=== PATIENT | female | born 1935 | race Caucasian/White ===

== ENCOUNTER 2025-04-19 14:10 | Inpatient (IN) ==
--- NOTE | 2025-04-19 14:12 | ED Physician Documentation ---
History of Present Illness Stated complaint Stated Complaint: GLF Chief complaint Chief Complaint: Trauma Ext History obtained from History obtained from: Patient and EMS Additonal information Additional information: 89yo with DMII, noncompliant with insulin, afib on pradaxa. Fell while gardening today direct onto LEFT hip. No other injusries,, confident there was no head strike. 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 Meds/Allgy Home Medications Ambulatory Orders Medication Instructions Recorded Confirmed dabigatran etexilate 150 mg 150 mg PO QDAY 03/23/25 capsule (Pradaxa) furosemide 20 mg tablet (Lasix) 20 mg PO DAILY #30 tab s 03/23/25 metformin 500 mg tablet 500 mg PO QDAY 03/23/2503/05 Allergies Allergies Allergy/AdvReac Type Severity Reaction Status Date / Time Sulfa (Sulfonamide Allergy Intermediate Rash Verified 04/19/25 14:17 Antibiotics) PFSH Active Problems All Active Problems (Updated 04/19/25 @ 14:47 by María Heller RN) Atrial fibrillation (Chronic) DM type 2 (diabetes mellitus, type 2) (Acute) Chronic anticoagulation (Chronic) Closed intertrochanteric fracture of left femur (Acute) Confusion (Acute) Shortness of breath (Acute) Diabetes (Acute) Atrial fibrillation (Acute) Peripheral edema (Acute) Medical History Medical History (Updated 04/19/25 @ 14:47 by María Heller RN) Fall (on) (from) other stairs and steps, initial encounter Social History Social History (Updated 03/23/25 @ 22:36 by Nick Bonilla MD) Smoking Status: Smoker current status unk Living arrangement: At home Do you feel safe in your home environment?: Yes History of physical, verbal, emotional, or financial abuse?: No Exam Exam Vital Signs: Vital Signs x48h Temp Pulse Resp BP Pulse Ox 04/19/25 14:11 36.5 C 98 18 175/102 H 99 Constitutional normal general appearance winces with motion Eyes PERRL Neck/C-Spine cervical spine nontender and cervical full ROM noted Cardiovascular irregular, no murmur Gastrointestinal abdomen soft to palpation and nontender to palpation Extremities LEFT hip is externally rotated and short. Severe pain with any ROM Results Vitals Vitals: Vital Signs - 24 hr 04/19/25 14:11 04/19/25 14:16 Temperature 36.5 C Temperature Source Temporal Artery Scan Pulse Rate 98 Respiratory Rate 18 Blood Pressure 175/102 H O2 Saturation 99 O2 Source Room air Pain Intensity 10 10 Oxygen O2 Source Room air EKG (time done) 1456: EKG releavant findings:: EKG personally interpreted by author of this note. Relevant findings are: Atrial fibrillation with rate of 104. Nonspecific T wave abnormalities. No ST elevation or depression. Rads (name of study) Single view chest x-ray demonstrates mild CHF, left hip x-ray demonstrates comminuted intertrochanteric fracture: Relevant Findings:: Final report received and EMP independent interpretation of test PD Medical Decision Making ED course Complexity details: reviewed results (CBC and CMP are unremarkable except for hyperglycemia and CKD.) ED course: She has intertroch frx. Isolated injury No head inj. Spoke with[facility] ortho about 2:30pm-ok to admit to medicine. Spoke with Dr Reaves, hospitalist @2:40pm Discharge Plan Discharge Patient Disposition: 66 [facility] DC/Xfer Condition: Serious Clinical Impression: Chronic anticoagulation Closed intertrochanteric fracture of left femur Qualifiers: Encounter type: initial encounter Fracture alignment: displaced Qualified Code(s): S72.142A - Displaced intertrochanteric fracture of left femur, initial encounter for closed fracture DM type 2 (diabetes mellitus, type 2) Qualifiers: Diabetes mellitus pipe jeeper insulin use: unspecified longterm insulin use status Diabetes mellitus complication status: with hyperglycemia Qualified Code(s): E11.65 - Type 2 diabetes mellitus with hyperglycemia Atrial fibrillation Qualifiers: Atrial fibrillation type: unspecified Qualified Code(s): I48.91 - Unspecified atrial fibrillation
[2025-04-19] MEDS: HYDROmorphone 1 MG/ML CARPUJECT IVP STA ×2 (14:16→15:19)
[2025-04-19 14:49] LABS: HCT - HEMATOCRIT 40.9 % (37.0-47.0); HGB - HEMOGLOBIN 13.3 g/dL (12.0-16.0); MEAN PLATELET VOLUME 10.5 fL (7.9-10.8); NRBC ABSOLUTE COUNT (AUTO) 0.00 x10^3/uL; NUCLEATED RED BLOOD CELLS AUTO 0.0 /100WBC; PLT - PLATELET COUNT 205 10^3/uL (130-450); RED CELL DISTRIBUTION WIDTH 14.1 % (12.0-15.0)
[2025-04-19 15:01] LABS: INR 1.1 (0.8-1.2); PT - PROTHROMBIN TIME 12.9 secs (9.9-12.6)
[2025-04-19 15:04] LABS: ALT ALANINE AMINOTRANSFERASE 8.0 IU/L (10-60); AST ASPARTATE AMINOTRANSFERASE 13.0 IU/L (10-42); BUN - BLOOD UREA NITROGEN 24.0 mg/dL (6-20); CARBON DIOXIDE - CO2 28.0 mmol/L (21-32); CREATININE 0.8 mg/dL (0.6-1.3); GFR - MDRD 68.0 (>89)
--- NOTE | 2025-04-19 15:07 | HISTORY & PHYSICAL EXAMINATION ---
Chief Complaint Chief Complaint Chief Complaint: Fall with hip pain History of Present Illness History of Present Illness HPI Comment/Other: 89-year-old female with PMH type 2 diabetes that she takes metformin for but is noncompliant with her insulin. Other history A-fib on Pradaxa. She recently sold her home, and is spending a few months at a time with various members of her family. Currently staying with her grandson. She had a mechanical fall while gardening today and fell directly onto her left hip. Denies hitting her head. She reports severe left hip pain. In the ER, x-ray of the hip showed a comminuted, displaced intertrochanteric fracture of the left hip. Ortho was consulted by ER provider, who recommended admission to medicine. Hospitalist was contacted for admission Meds/Allgy Home Medications Ambulatory Orders Medication Instructions Recorded Confirmed dabigatran etexilate 150 mg 150 mg PO QDAY 03/23/25 capsule (Pradaxa) furosemide 20 mg tablet (Lasix) 20 mg PO DAILY #30 tab s 03/23/25 metformin 500 mg tablet 500 mg PO QDAY 03/23/2503/05 Allergies Allergies Allergy/AdvReac Type Severity Reaction Status Date / Time Sulfa (Sulfonamide Allergy Intermediate Rash Verified 04/19/25 14:17 Antibiotics) PFSH Active Problems All Active Problems (Updated 04/19/25 @ 14:47 by María Heller RN) Atrial fibrillation (Chronic) DM type 2 (diabetes mellitus, type 2) (Acute) Chronic anticoagulation (Chronic) Closed intertrochanteric fracture of left femur (Acute) Confusion (Acute) Shortness of breath (Acute) Diabetes (Acute) Atrial fibrillation (Acute) Peripheral edema (Acute) Medical History Medical History (Updated 04/19/25 @ 14:47 by María Heller RN) Fall (on) (from) other stairs and steps, initial encounter Social History Social History (Updated 03/23/25 @ 22:36 by Nick Bonilla MD) Smoking Status: Smoker current status unk Living arrangement: At home Do you feel safe in your home environment?: Yes History of physical, verbal, emotional, or financial abuse?: No POLST Patient has POLST: No Review of Systems ROS limited due to confusion after pain medication. Denies fever, chills, chest pain, dyspnea. Reports mechanical fall with left hip pain Exam Exam Vital Signs: Vital Signs x48h Temp Pulse Pulse Resp BP BP Pulse Ox 04/19/25 16:09 36.8 C 100 20 141/86 H 96 04/19/25 15:39 98 18 143/89 H 97 04/19/25 14:11 36.5 C 98 18 175/102 H 99 Constitutional Disheveled elderly female. Anxious HENMT normocephalic, head/scalp atraumatic and oral mucous membranes abnormal (dry) Eyes PERRL Respiratory breath sounds equal bilaterally and normal respiratory effort Cardiovascular normal heart rate noted, rhythm abnormal (irregular) and edema noted Gastrointestinal abdomen normal to inspection and abdomen soft to palpation Extremities Pitting edema in both legs Neurology GCS 15 Psychiatry Oriented overall. Anxious. Tangential conversation, requiring frequent coaching to answer questions Skin BLE redness from venous insufficiency Conclusion/Plan Problem List (1) Closed intertrochanteric fracture of left femur: Plan: Mechanical fall with left femur fracture noted on x-ray Ortho consulted by ER provider Tylenol 1 g p.o. 3 times daily scheduled As needed oxycodone 5 mg p.o. As needed morphine 2 mg IV push Anticipate PT consult in the postoperative period and likely SNF placement Qualifiers: Encounter type: initial encounter Fracture alignment: displaced Q ualified Code(s): S72.142A - Displaced intertrochanteric fracture of left femur, initial encounter for closed fracture (2) Atrial fibrillation: Plan: Preliminary med rec does not show any rate control drugs She is on Pradaxa at home, holding that at this time as she will be in the OR Rate currently controlled without medication Qualifiers: Atrial fibrillation type: unspecified Qualified Code(s): I48.91 - Unspecified atrial fibrillation (3) DM type 2 (diabetes mellitus, type 2): Plan: She reports that she takes metformin for this, but is noncompliant with insulin Check A1c SSI Qualifiers: Diabetes mellitus complication status: with hyperglycemia Diabetes mellitus intermediate insulin use: unspecified intermediate insulin use status Q ualified Code(s): E11.65 - Type 2 diabetes mellitus with hyperglycemia (4) Peripheral edema: Plan: Reports leg swelling for the past few months. Was started on Lasix. No known history of heart failure Check echo No respiratory symptoms, no concern for acute exacerbation Plan Admit inpatient med floor DNR/DNI Her daughter is her surrogate decision maker/DPOA Lab Results Lab results reviewed: Yes 04/19/25 14:39 04/19/25 14:39 Diagnostic Imaging Results Diagnostic Imaging Results: positive Final report reviewed and Read independently Core Measures Anticipated LOS I expect patient to be DC'd or transferred within 96 hours.: Yes DVT/VTE - Prophylaxis VTE/DVT Prophylaxis med ordered at admit?: Yes
--- NOTE | 2025-04-19 15:10 | XRAY Report ---
PROCEDURE: XR Chest 1V INDICATIONS: preop TECHNIQUE: One view of the chest was acquired. COMPARISON: 03/23/2025 FINDINGS: Surgical changes and devices: None. Lungs and pleura: Question subtle interstitial pulmonary edema Mediastinum: Cardiomegaly. Bones and chest wall: No suspicious bony lesions. Overlying soft tissues appear unremarkable. IMPRESSION: Question mild congestive heart failure. Reviewed by: Ollie Do sSantos MD on 04/19/2025 3:07 PM PDT Approved by: Ollie Dos Santos MD on 04/19/2025 3:07 PM PDT Station ID: [id number]
--- NOTE | 2025-04-19 15:12 | XRAY Report ---
PROCEDURE: XR Hip w/Pelvis 2-3V LT INDICATIONS: hip inj TECHNIQUE: An AP view of the pelvis and AP and crosstable lateral views of the hip were acquired. COMPARISON: None. FINDINGS: Bones: Comminuted displaced intertrochanteric fracture of the left hip. No dislocation. Soft tissues: No suspicious soft tissue calcifications or masses. IMPRESSION: Comminuted, displaced intertrochanteric fracture of the left hip. Reviewed by: Ollie Dos Santos MD on 04/19/2025 3:09 PM PDT Approved by: Ollie Dos Santos MD on 04/19/2025 3:09 PM PDT Station ID: [id number]
[2025-04-19] MEDS ORDERED: ONDANSETRON 4 MG/2 ML VIAL IVP PRN (15:49)
[2025-04-19] MEDS ORDERED: SODIUM CHLORIDE FLUSH 0.9% 10 ML SYRINGE IVP PRN (15:49)
[2025-04-19] MEDS: HYDROmorphone 0.5 MG/0.5 ML SYRINGE IVP PRN (16:02)
[2025-04-19] MEDS: LACTATED RINGERS 1,000 ML IV SCH (16:04)
[2025-04-19] MEDS: ACETAMINOPHEN 500 MG TABLET PO SCH (17:46)
[2025-04-19] MEDS: SODIUM CHLORIDE FLUSH 0.9% 10 ML SYRINGE IVP SCH (18:47)
[2025-04-19] MEDS: INSULIN LISPRO 300 UNIT/3 ML PEN SUBQ SCH (18:47)
[2025-04-19] MEDS: NYSTATIN POWDER 15 GM TOP SCH (21:31)
[2025-04-20 05:14] LABS: HCT - HEMATOCRIT 35.3 % (37.0-47.0); HGB - HEMOGLOBIN 11.6 g/dL (12.0-16.0); MEAN PLATELET VOLUME 10.6 fL (7.9-10.8); NRBC ABSOLUTE COUNT (AUTO) 0.00 x10^3/uL; NUCLEATED RED BLOOD CELLS AUTO 0.0 /100WBC; PLT - PLATELET COUNT 172 10^3/uL (130-450); RED CELL DISTRIBUTION WIDTH 14.3 % (12.0-15.0)
[2025-04-20 05:27] LABS: BUN - BLOOD UREA NITROGEN 19.0 mg/dL (6-20); CARBON DIOXIDE - CO2 25.0 mmol/L (21-32); CREATININE 0.7 mg/dL (0.6-1.3); GFR - MDRD 79.0 (>89)
[2025-04-20] MEDS: FUROSEMIDE 20 MG TABLET PO SCH (08:08)
[2025-04-20 08:25] LABS: ESTIMATED AVERAGE GLUCOSE 180 mg/dL (70-100); HEMOGLOBIN A1c% 7.9 % (4.27-6.07)
--- NOTE | 2025-04-20 11:56 | PHARMACY PROGRESS NOTE ---
Best Possible Medication History Admit Date and Time: 04/19/25 1439 Home Medications Medication Instructions Recorded Confirmed Type dabigatran etexilate 110 mg 110 mg PO BID 04/19/25 History capsule (Pradaxa) insulin NPH isoph U-100 human 100 30 unit subcut DAILY 04/19/25 04/20/25 History unit/mL subcutaneous suspension (Novolin N NPH U-100 Insulin isophane) metformin 500 mg tablet,extended 1,000 mg PO DAILY 04/20/25 History release 24 hr sertraline 50 mg tablet 50 mg PO DAILY 04/19/2504/04 History atorvastatin 20 mg tablet 20 mg PO DAILY 04/20/2504/04 History levothyroxine 50 mcg tablet 50 mcg PO QAM 04/20/25 History tramadol 50 mg tablet 50 mg PO Q6H 04/20/25 History Processed by: Pharmacy Medications reviewed in ED?: Yes Medication History completed: Yes Patient Interview: Completed Secondary Source(s): Other family member and Insurance records [facility] Statement: PT STATES THAT SHE ONLY TAKES PRADAXA AND METFORMIN WHILE DAUGHTER WHO IS DPOA STATES SHE TAKES THE FULL MED LIST. As the person ultimately responsible for medication therapy, providers are able to order a medication from an existing home medication list in [facility] via the "Reconcile Routine" prior to Confirmation of that medication by dealer support technician. Such practice is discouraged except when the physician, in their clinical judgment, deems that a medical need exists for a medication without regard to previous use.
[2025-04-20] MEDS: oxyCODONE 5 MG TABLET PO PRN (12:26)
--- NOTE | 2025-04-20 13:05 | PROVIDER PROGRESS NOTE ---
Subjective Prog Note Date Prog Note Date: 04/20/25 Subjective Subjective: She is feeling OK. She says that pain is mostly controlled, occasionally has bursts of it, then meds control it, but she feels like she is losing touch with reality on the meds. She is unable to sit up in bed due to pain. She is concerned about delirium. She had an experience right as Covid lockdowns were starting when she went to SNF. She says the care was terrible, and she was forced to urinate in her bed instead of getting up to the bathroom, although she was independent. She does not want to go to a SNF for rehab bc of this experience. [place], and a grandson at the bedside right now. Her POA and primary residence is in [place], although her plan is to bounce between her children's homes. Current Medications Current Medications Current Medications: Current Medications Generic Name Dose Route Start Last Admin Trade Name Freq PRN Reason Stop Dose Admin Acetaminophen 1,000 mg 04/19/25 15:49 04/20/25 06:51 Acetaminophen 500 Mg Tablet PO 1,000 mg TID BEN Administration Enoxaparin Sodium 40 mg 04/20/25 21:00 Enoxaparin 40 Mg/0.4 Ml Syringe SUBQ DAILY BEN Furosemide 20 mg 04/20/25 09:00 04/20/25 08:08 Furosemide 20 Mg Tablet PO 20 mg DAILY BEN Administration Hydromorphone HCl 0.5 mg 04/19/25 15:49 04/20/25 11:29 Hydromorphone 0.5 Mg/0.5 Ml Syringe IVP 0.5 mg Q2H PRN Administration Pain 8 to 10 Lactated Ringer's 1,000 mls @ 100 mls/hr 04/19/25 15:49 04/20/25 02:33 Lr IV 100 mls/hr .Q10H BEN Administration Insulin Human Lispro 1 - 5 unit 04/19/25 17:00 04/20/25 11:27 Insulin Lispro 300 Unit/3 Ml Pen SUBQ 1 unit 0800,1200,1700,2100 BEN Administration Protocol Nystatin 1 applic 04/19/25 21:00 04/20/25 08:08 Nystatin Powder 15 Gm TOP 1 applic BID BEN Administration Ondansetron HCl 4 mg 04/19/25 15:49 Ondansetron Odt 4 Mg Tablet TL Q6HR PRN Nausea / Vomiting Ondansetron HCl 4 mg 04/19/25 15:49 Ondansetron 4 Mg/2 Ml Vial IVP Q6HR PRN Nausea / Vomiting Oxycodone HCl 5 mg 04/19/25 15:49 04/20/25 12:26 Oxycodone 5 Mg Tablet PO 5 mg Q4HR PRN Administration Pain 5 to 7 Sodium Chloride 10 ml 04/19/25 15:49 Sodium Chloride Flush 0.9% 10 Ml Syringe IVP PRN PRN NEEDED PER PROVIDER ORDERS Sodium Chloride 10 ml 04/19/25 17:00 04/20/25 08:08 Sodium Chloride Flush 0.9% 10 Ml Syringe IVP 10 ml 0100,0900,1700 BEN Administration Objective Vital Signs/Intake & Output Reviewed Vital Signs: Yes Vital Signs: Vital Signs x48h Temp Pulse Resp BP Pulse Ox 04/20/25 07:49 36.7 C 110 H 18 124/80 94 Intake & Output: Intake & Output 04/17/25 04/18/25 04/19/25 04/20/25 23:59 23:59 23:59 23:59 Intake Total 200 / 200 1000 / 1000 Output Total 600 / 600 300 / 300 Balance -400 / -400 700 / 700 Weight (kg) 91.5 kg Objective General Appearance: positive No acute distress and Alert Eyes Bilateral: positive Normal inspection ENT: positive ENT inspection nml Respiratory: positive No respiratory distress and Breath sounds nml Cardiovascular: positive Regular rate & rhythm Abdomen: positive Non-tender and No distention Skin: positive Color nml Extremities: positive Pedal edema (trace) Neurologic/Psychiatric: positive Oriented x3 Lab Results 04/20/25 04:59 04/20/25 04:59 Other Labs: Lab Results x24hrs 04/20/25 04/20/25 04/20/25 Range/Units 11:17 07:25 04:59 WBC 5.0 (4.8-10.8) x10^3/uL RBC 4.19 L (4.20-5.40) 10^6/uL Hgb 11.6 L (12.0-16.0) g/dL Hct 35.3 L (37.0-47.0) % MCV 84.2 (81.0-99.0) fL MCH 27.7 (27.0-31.0) pg MCHC 32.9 (32.0-36.0) g/dL RDW 14.3 (12.0-15.0) % Plt Count 172 (130-450) 10^3/uL MPV 10.6 (7.9-10.8) fL Neut # (Auto) 3.4 (1.5-6.6) 10^3/uL Lymph # (Auto) 0.9 L (1.5-3.5) 10^3/uL [place] # (Auto) 0.7 (0.0-1.0) 10^3/uL Eos # (Auto) 0.0 (0.0-0.7) 10^3/uL Baso # (Auto) 0.0 (0.0-0.1) 10^3/uL Absolute Nucleated RBC 0.00 x10^3/uL Nucleated RBC % 0.0 /100WBC PT (9.9-12.6) secs INR (0.8-1.2) Sodium 136 (135-145) mmol/L Potassium 3.9 (3.5-4.5) mmol/L Chloride 106 (101-111) mmol/L Carbon Dioxide 25 (21-32) mmol/L Anion Gap 5.0 L (6-13) BUN 19 (6-20) mg/dL Creatinine 0.7 (0.6-1.3) mg/dL Estimated GFR (MDRD) 79 L (>89) Glucose 163 H (74-104) mg/dL POC Whole Bld Glucose 149 162 (70-100) mg/dL Estimat Average Glucose 180 H (70-100) mg/dL Hemoglobin A1c % 7.9 H (4.27-6.07) % Calcium 8.6 (8.5-10.3) mg/dL Total Bilirubin (0.2-1.0) mg/dL AST (10-42) IU/L ALT (10-60) IU/L Alkaline Phosphatase (42-121) IU/L Total Protein (6.4-8.9) g/dL Albumin (3.2-5.5) g/dL Globulin (2.1-4.2) g/dL Albumin/Globulin Ratio (1.0-2.2) 04/19/25 04/19/25 04/19/25 Range/Units 20:40 16:45 14:39 WBC 6.8 (4.8-10.8) x10^3/uL RBC 4.81 (4.20-5.40) 10^6/uL Hgb 13.3 (12.0-16.0) g/dL Hct 40.9 (37.0-47.0) % MCV 85.0 (81.0-99.0) fL MCH 27.7 (27.0-31.0) pg MCHC 32.5 (32.0-36.0) g/dL RDW 14.1 (12.0-15.0) % Plt Count 205 (130-450) 10^3/uL MPV 10.5 (7.9-10.8) fL Neut # (Auto) 5.4 (1.5-6.6) 10^3/uL Lymph # (Auto) 0.7 L (1.5-3.5) 10^3/uL [place] # (Auto) 0.7 (0.0-1.0) 10^3/uL Eos # (Auto) 0.0 (0.0-0.7) 10^3/uL Baso # (Auto) 0.0 (0.0-0.1) 10^3/uL Absolute Nucleated RBC 0.00 x10^3/uL Nucleated RBC % 0.0 /100WBC PT 12.9 H (9.9-12.6) secs INR 1.1 (0.8-1.2) Sodium 138 (135-145) mmol/L Potassium 5.0 H (3.5-4.5) mmol/L Chloride 104 (101-111) mmol/L Carbon Dioxide 28 (21-32) mmol/L Anion Gap 6.0 (6-13) BUN 24 H (6-20) mg/dL Creatinine 0.8 (0.6-1.3) mg/dL Estimated GFR (MDRD) 68 L (>89) Glucose 185 H (74-104) mg/dL POC Whole Bld Glucose 184 139 (70-100) mg/dL Estimat Average Glucose (70-100) mg/dL Hemoglobin A1c % (4.27-6.07) % Calcium 9.8 (8.5-10.3) mg/dL Total Bilirubin 0.9 (0.2-1.0) mg/dL AST 13 (10-42) IU/L ALT 8 L (10-60) IU/L Alkaline Phosphatase 54 (42-121) IU/L Total Protein 6.9 (6.4-8.9) g/dL Albumin 4.4 (3.2-5.5) g/dL Globulin 2.5 (2.1-4.2) g/dL Albumin/Globulin Ratio 1.8 (1.0-2.2) Assessment/Plan Problem List (1) Closed intertrochanteric fracture of left femur: Impression: Discussed today with Dr Herrera, orthopedics. The plan is to allow her to metabolize the Pradaxa, and go to the OR on 04/22. Multimodal pain control. Scheduled APAP. I am holding NSAIDS at this time due to bleeding at time of OR. Would consider gabapentin if needs better pain control, but concerned that will affect her mental status. PT will work with her today in bed. I will add Calcium and Vit D post op for fracture healing. possible SNF placement post operatively. Patient is not in agreement with this. I will see how she is doing post op and work with her. I mentioned the possibility of family evaluating SNF before placement, to ease patient fears. Qualifiers: Encounter type: initial encounter Fracture alignment: displaced Q ualified Code(s): S72.142A - Displaced intertrochanteric fracture of left femur, initial encounter for closed fracture (2) Atrial fibrillation: Impression: Preliminary med rec does not show any rate control drugs She is on Pradaxa at home, holding that at this time as she will be in the OR Rate currently controlled without medication- I have restarted home meds. Qualifiers: Atrial fibrillation type: unspecified Qualified Code(s): I48.91 - Unspecified atrial fibrillation (3) DM type 2 (diabetes mellitus, type 2): Impression: A1C is 7.9%. She has taken insulin only about 3 times over the summer. She is careful with her diet. She is complaint with metformin. She is on SSI right now. I will keep her blood sugars less than 180 while hospitalized. I will discharge her to resume metformin, and recomend lower carb diet, and peggy A1C in 3 month. I will not continue insulin on dc. Qualifiers: Diabetes mellitus complication status: with hyperglycemia Diabetes mellitus exterminator insulin use: unspecified exterminator insulin use status Q ualified Code(s): E11.65 - Type 2 diabetes mellitus with hyperglycemia (4) Peripheral edema: Impression: Echo pending. started on lasix for symptoms of leg swelling several months ago. data technical lead not available until 04/21. This patient's diagnosis and treatment plan was discussed this AM with attending physician as a part of multi disciplinary rounding meeting. I have spent 51 minutes in the care of this patient today. This includes time [id number], review and ordering of diagnostic imaging and laboratory studies and consultation with other providers.
[2025-04-20] MEDS: LEVOTHYROXINE 25 MCG TABLET PO SCH (14:16)
[2025-04-20] MEDS: ENOXAPARIN 40 MG/0.4 ML SYRINGE SUBQ SCH (21:21)
[2025-04-21 05:34] LABS: HCT - HEMATOCRIT 38.7 % (37.0-47.0); HGB - HEMOGLOBIN 12.4 g/dL (12.0-16.0); MEAN PLATELET VOLUME 10.4 fL (7.9-10.8); NRBC ABSOLUTE COUNT (AUTO) 0.00 x10^3/uL; NUCLEATED RED BLOOD CELLS AUTO 0.0 /100WBC; PLT - PLATELET COUNT 160 10^3/uL (130-450); RED CELL DISTRIBUTION WIDTH 14.1 % (12.0-15.0)
[2025-04-21 05:50] LABS: BUN - BLOOD UREA NITROGEN 14.0 mg/dL (6-20); CARBON DIOXIDE - CO2 25.0 mmol/L (21-32); CREATININE 0.7 mg/dL (0.6-1.3); GFR - MDRD 79.0 (>89)
[2025-04-21] MEDS: SERTRALINE 50 MG TABLET PO SCH (08:51)
--- NOTE | 2025-04-21 11:55 | PROVIDER PROGRESS NOTE ---
Subjective Prog Note Date Prog Note Date: 04/21/25 Subjective Subjective: She is doing well. Pain controlled. she has not been out of bed. Waiting for OR tomorrow. She has had some delirium at times, but she is able to reorient herself. Current Medications Current Medications Current Medications: Current Medications Generic Name Dose Route Start Last Admin Trade Name Freq PRN Reason Stop Dose Admin Acetaminophen 1,000 mg 04/19/25 15:49 04/21/25 05:44 Acetaminophen 500 Mg Tablet PO 1,000 mg TID BEN Administration Enoxaparin Sodium 40 mg 04/20/25 21:00 04/21/25 08:53 Enoxaparin 40 Mg/0.4 Ml Syringe SUBQ Not Given DAILY BEN Furosemide 20 mg 04/20/25 09:00 04/21/25 08:51 Furosemide 20 Mg Tablet PO 20 mg DAILY BEN Administration Hydromorphone HCl 0.5 mg 04/19/25 15:49 04/21/25 08:52 Hydromorphone 0.5 Mg/0.5 Ml Syringe IVP 0.5 mg Q2H PRN Administration Pain 8 to 10 Lactated Ringer's 1,000 mls @ 100 mls/hr 04/19/25 15:49 04/21/25 09:48 Lr IV 100 mls/hr .Q10H BEN Administration Insulin Human Lispro 1 - 5 unit 04/19/25 17:00 04/21/25 08:51 Insulin Lispro 300 Unit/3 Ml Pen SUBQ 1 unit 0800,1200,1700,2100 BEN Administration Protocol Levothyroxine Sodium 50 mcg 04/20/25 15:00 04/21/25 06:54 Levothyroxine 25 Mcg Tablet PO 50 mcg 0700 BEN Administration Nystatin 1 applic 04/19/25 21:00 04/21/25 08:52 Nystatin Powder 15 Gm TOP 1 applic BID BEN Administration Ondansetron HCl 4 mg 04/19/25 15:49 Ondansetron Odt 4 Mg Tablet TL Q6HR PRN Nausea / Vomiting Ondansetron HCl 4 mg 04/19/25 15:49 Ondansetron 4 Mg/2 Ml Vial IVP Q6HR PRN Nausea / Vomiting Oxycodone HCl 5 mg 04/19/25 15:49 04/21/25 05:45 Oxycodone 5 Mg Tablet PO 5 mg Q4HR PRN Administration Pain 5 to 7 Sertraline HCl 50 mg 04/21/25 09:00 04/21/25 08:51 Sertraline 50 Mg Tablet PO 50 mg DAILY BEN Administration Sodium Chloride 10 ml 04/19/25 15:49 Sodium Chloride Flush 0.9% 10 Ml Syringe IVP PRN PRN NEEDED PER PROVIDER ORDERS Sodium Chloride 10 ml 04/19/25 17:00 04/21/25 08:52 Sodium Chloride Flush 0.9% 10 Ml Syringe IVP 10 ml 0100,0900,1700 BEN Administration Objective Vital Signs/Intake & Output Reviewed Vital Signs: Yes Vital Signs: Vital Signs x48h Temp Pulse Resp BP Pulse Ox 04/21/25 08:30 36.5 C 107 H 20 139/79 H 94 Intake & Output: Intake & Output 04/18/25 04/19/25 04/20/25 04/21/25 23:59 23:59 23:59 23:59 Intake Total 200 / 200 3605 / 3605 1110 / 1110 Output Total 600 / 600 1750 / 1750 450 / 450 Balance -400 / -400 1855 / 1855 660 / 660 Weight (kg) 91.5 kg Objective General Appearance: positive No acute distress and Alert Eyes Bilateral: positive Normal inspection ENT: positive ENT inspection nml Neck: positive Nml inspection Respiratory: positive No respiratory distress and Breath sounds nml Cardiovascular: positive Regular rate & rhythm Abdomen: positive Non-tender and No distention Skin: positive Color nml and Other (mild venous stasis skin changes BLE) Extremities: positive Non-tender and No pedal edema Neurologic/Psychiatric: positive Oriented x3 Lab Results 04/21/25 05:25 04/21/25 05:25 Other Labs: Lab Results x24hrs 04/21/25 04/21/25 04/21/25 Range/Units 11:37 07:40 05:25 WBC 6.0 (4.8-10.8) x10^3/uL RBC 4.52 (4.20-5.40) 10^6/uL Hgb 12.4 (12.0-16.0) g/dL Hct 38.7 (37.0-47.0) % MCV 85.6 (81.0-99.0) fL MCH 27.4 (27.0-31.0) pg MCHC 32.0 (32.0-36.0) g/dL RDW 14.1 (12.0-15.0) % Plt Count 160 (130-450) 10^3/uL MPV 10.4 (7.9-10.8) fL Neut # (Auto) 4.2 (1.5-6.6) 10^3/uL Lymph # (Auto) 0.9 L (1.5-3.5) 10^3/uL [place] # (Auto) 0.8 (0.0-1.0) 10^3/uL Eos # (Auto) 0.1 (0.0-0.7) 10^3/uL Baso # (Auto) 0.0 (0.0-0.1) 10^3/uL Absolute Nucleated RBC 0.00 x10^3/uL Nucleated RBC % 0.0 /100WBC Sodium 134 L (135-145) mmol/L Potassium 3.7 (3.5-4.5) mmol/L Chloride 103 (101-111) mmol/L Carbon Dioxide 25 (21-32) mmol/L Anion Gap 6.0 (6-13) BUN 14 (6-20) mg/dL Creatinine 0.7 (0.6-1.3) mg/dL Estimated GFR (MDRD) 79 L (>89) Glucose 176 H (74-104) mg/dL POC Whole Bld Glucose 202 153 (70-100) mg/dL Calcium 8.1 L (8.5-10.3) mg/dL 04/20/25 04/20/25 Range/Units 20:50 16:35 WBC (4.8-10.8) x10^3/uL RBC (4.20-5.40) 10^6/uL Hgb (12.0-16.0) g/dL Hct (37.0-47.0) % MCV (81.0-99.0) fL MCH (27.0-31.0) pg MCHC (32.0-36.0) g/dL RDW (12.0-15.0) % Plt Count (130-450) 10^3/uL MPV (7.9-10.8) fL Neut # (Auto) (1.5-6.6) 10^3/uL Lymph # (Auto) (1.5-3.5) 10^3/uL [place] # (Auto) (0.0-1.0) 10^3/uL Eos # (Auto) (0.0-0.7) 10^3/uL Baso # (Auto) (0.0-0.1) 10^3/uL Absolute Nucleated RBC x10^3/uL Nucleated RBC % /100WBC Sodium (135-145) mmol/L Potassium (3.5-4.5) mmol/L Chloride (101-111) mmol/L Carbon Dioxide (21-32) mmol/L Anion Gap (6-13) BUN (6-20) mg/dL Creatinine (0.6-1.3) mg/dL Estimated GFR (MDRD) (>89) Glucose (74-104) mg/dL POC Whole Bld Glucose 175 179 (70-100) mg/dL Calcium (8.5-10.3) mg/dL Assessment/Plan Problem List (1) Closed intertrochanteric fracture of left femur: Impression: The plan is to allow her to metabolize the Pradaxa, and go to the OR on 04/22. Multimodal pain control. Scheduled APAP. I am holding NSAIDS at this time due to bleeding at time of OR. Would consider gabapentin if needs better pain control, but concerned that will affect her mental status. She does not seem to need it. PT eval pending- patient is firm in her desire not to go to SNF post op. I will add Calcium and Vit D post op for fracture healing. Qualifiers: Encounter type: initial encounter Fracture alignment: displaced Q ualified Code(s): S72.142A - Displaced intertrochanteric fracture of left femur, initial encounter for closed fracture (2) Atrial fibrillation: Impression: Preliminary med rec does not show any rate control drugs She is on Pradaxa at home, holding that at this time as she will be in the OR Rate currently controlled without medication- I have restarted home meds. Selected Entries 04/20/25 00:06 04/20/25 07:49 04/20/25 15:34 Pulse Rate [Brachial] 105 H 110 H 94 04/20/25 23:25 04/21/25 08:30 Pulse Rate [Brachial] 103 H 107 H Qualifiers: Atrial fibrillation type: unspecified Qualified Code(s): I48.91 - Unspecified atrial fibrillation (3) DM type 2 (diabetes mellitus, type 2): Impression: A1C is 7.9%. She has taken insulin only about 3 times over the summer. She is careful with her diet. She is complaint with metformin. She is on SSI right now. I will keep her blood sugars less than 180 while hospitalized. I will discharge her to resume metformin, and recomend lower carb diet, and peggy A1C in 3 month. I will not continue insulin on dc. With holding her metformin, she has been >180 at times. I am treating with SSI, low dose. Laboratory Tests 04/20/25 04/20/25 04/20/25 11:17 16:35 20:50 POC Whole Bld Glucose 149 179 175 04/21/25 04/21/25 07:40 11:37 POC Whole Bld Glucose 153 202 Qualifiers: Diabetes mellitus complication status: with hyperglycemia Diabetes mellitus shelter insulin use: unspecified buttermaker helper insulin use status Q ualified Code(s): E11.65 - Type 2 diabetes mellitus with hyperglycemia (4) Peripheral edema: Impression: Echo pending. started on lasix for symptoms of leg swelling several months ago. Echo is being done right now. This patient's diagnosis and treatment plan was discussed this AM with attending physician as a part of multi disciplinary rounding meeting. I have spent 38 minutes in the care of this patient today. This includes time [id number], review and ordering of diagnostic imaging and laboratory studies.
[2025-04-21] MEDS: ONDANSETRON ODT 4 MG TABLET TL PRN (12:52)
--- NOTE | 2025-04-21 14:15 | HISTORY & PHYSICAL EXAMINATION ---
Chief Complaint Chief Complaint Chief Complaint: Left hip pain History of Present Illness History of Present Illness HPI Comment/Other: The patient was admitted to the hospital on Friday afternoon evening after a fall onto the left hip. She was diagnosed with a displaced intertrochanteric hip fracture and she was admitted to medicine. Due to her medical status and being on blood thinners we were unable to go right to surgery so we held the blood thinners and we are now going to clear the patient for surgery for Friday. The patient has no other complaints other than left leg swelling. Colonoscopy Questionnaire In the last 30 days have you experienced these symptoms? PFSH Active Problems All Active Problems (Updated 04/19/25 @ 14:47 by María Heller RN) Atrial fibrillation (Chronic) DM type 2 (diabetes mellitus, type 2) (Acute) Chronic anticoagulation (Chronic) Closed intertrochanteric fracture of left femur (Acute) Confusion (Acute) Shortness of breath (Acute) Diabetes (Acute) Atrial fibrillation (Acute) Peripheral edema (Acute) Medical History Medical History (Updated 04/19/25 @ 14:47 by María Heller RN) Fall (on) (from) other stairs and steps, initial encounter Social History Social History (Updated 03/23/25 @ 22:36 by Nick Bonilla MD) Smoking Status: Smoker current status unk Second hand tobacco smoke exposure: No Do you dip or chew tobacco?: No Do you vape?: No Living arrangement: At home Level: Independent Home Mobility Equipment: Cane and Wheeled walker Do you feel safe in your home environment?: Yes History of physical, verbal, emotional, or financial abuse?: No POLST Patient has POLST: No Meds/Allgy Home Medications Ambulatory Orders Medication Instructions Recorded Confirmed dabigatran etexilate 110 mg 110 mg PO BID 04/19/25 capsule (Pradaxa) insulin NPH isoph U-100 human 100 30 unit subcut DAILY 04/19/25 04/20/25 unit/mL subcutaneous suspension (Novolin N NPH U-100 Insulin isophane) metformin 500 mg tablet,extended 1,000 mg PO DAILY 04/20/25 release 24 hr sertraline 50 mg tablet 50 mg PO DAILY 04/19/2504/04 atorvastatin 20 mg tablet 20 mg PO DAILY 04/20/2504/04 levothyroxine 50 mcg tablet 50 mcg PO QAM 04/20/25 tramadol 50 mg tablet 50 mg PO Q6H 04/20/25 Allergies Allergies Allergy/AdvReac Type Severity Reaction Status Date / Time Sulfa (Sulfonamide Allergy Intermediate Rash Verified 04/19/25 14:17 Antibiotics) Results Lab Results 04/21/25 05:25 04/21/25 05:25 Other Lab Results: Lab Results x24hrs 04/21/25 04/21/25 04/21/25 Range/Units 11:37 07:40 05:25 WBC 6.0 (4.8-10.8) x10^3/uL RBC 4.52 (4.20-5.40) 10^6/uL Hgb 12.4 (12.0-16.0) g/dL Hct 38.7 (37.0-47.0) % MCV 85.6 (81.0-99.0) fL MCH 27.4 (27.0-31.0) pg MCHC 32.0 (32.0-36.0) g/dL RDW 14.1 (12.0-15.0) % Plt Count 160 (130-450) 10^3/uL MPV 10.4 (7.9-10.8) fL Neut # (Auto) 4.2 (1.5-6.6) 10^3/uL Lymph # (Auto) 0.9 L (1.5-3.5) 10^3/uL [place] # (Auto) 0.8 (0.0-1.0) 10^3/uL Eos # (Auto) 0.1 (0.0-0.7) 10^3/uL Baso # (Auto) 0.0 (0.0-0.1) 10^3/uL Absolute Nucleated RBC 0.00 x10^3/uL Nucleated RBC % 0.0 /100WBC Sodium 134 L (135-145) mmol/L Potassium 3.7 (3.5-4.5) mmol/L Chloride 103 (101-111) mmol/L Carbon Dioxide 25 (21-32) mmol/L Anion Gap 6.0 (6-13) BUN 14 (6-20) mg/dL Creatinine 0.7 (0.6-1.3) mg/dL Estimated GFR (MDRD) 79 L (>89) Glucose 176 H (74-104) mg/dL POC Whole Bld Glucose 202 153 (70-100) mg/dL Calcium 8.1 L (8.5-10.3) mg/dL 04/20/25 04/20/25 Range/Units 20:50 16:35 WBC (4.8-10.8) x10^3/uL RBC (4.20-5.40) 10^6/uL Hgb (12.0-16.0) g/dL Hct (37.0-47.0) % MCV (81.0-99.0) fL MCH (27.0-31.0) pg MCHC (32.0-36.0) g/dL RDW (12.0-15.0) % Plt Count (130-450) 10^3/uL MPV (7.9-10.8) fL Neut # (Auto) (1.5-6.6) 10^3/uL Lymph # (Auto) (1.5-3.5) 10^3/uL [place] # (Auto) (0.0-1.0) 10^3/uL Eos # (Auto) (0.0-0.7) 10^3/uL Baso # (Auto) (0.0-0.1) 10^3/uL Absolute Nucleated RBC x10^3/uL Nucleated RBC % /100WBC Sodium (135-145) mmol/L Potassium (3.5-4.5) mmol/L Chloride (101-111) mmol/L Carbon Dioxide (21-32) mmol/L Anion Gap (6-13) BUN (6-20) mg/dL Creatinine (0.6-1.3) mg/dL Estimated GFR (MDRD) (>89) Glucose (74-104) mg/dL POC Whole Bld Glucose 175 179 (70-100) mg/dL Calcium (8.5-10.3) mg/dL Exam Exam Vital Signs: Vital Signs x48h Temp Pulse Resp BP Pulse Ox 04/21/25 08:30 36.5 C 107 H 20 139/79 H 94 Physical exam reveals the left leg to be shortened and externally rotated. She has significant edema throughout the lower extremity significant tenderness to palpation of the left hip and she is unable to straight leg raise. Impression/Plan Problem List (1) Closed intertrochanteric fracture of left femur: Plan: The patient has a closed intertrochanteric fracture of the left hip and she will be cleared for surgery in the morning and we have her tentatively scheduled for 8 AM for intramedullary kirit placement.The patient is with one of her daughters and they both understand the risks and benefits of the procedure and a consent was signed. Qualifiers: Encounter type: initial encounter Fracture alignment: displaced Q ualified Code(s): S72.142A - Displaced intertrochanteric fracture of left femur, initial encounter for closed fracture (2) Atrial fibrillation: Qualifiers: Atrial fibrillation type: unspecified Qualified Code(s): I48.91 - Unspecified atrial fibrillation (3) DM type 2 (diabetes mellitus, type 2): Qualifiers: Diabetes mellitus complication status: with hyperglycemia Diabetes mellitus extermination supervisor insulin use: unspecified extermination supervisor insulin use status Q ualified Code(s): E11.65 - Type 2 diabetes mellitus with hyperglycemia (4) Peripheral edema:
--- NOTE | 2025-04-21 15:53 | ECHO Report ---
Version: 1 Study ID: [id number] [id number] Adult Echocardiogram Report Name: ROSA TAYLOR Study Date: 04/21/2025, 11: 43 AM BP: 139 / 79 mmHg Patient Location[place] [facility] [place] HR: 90 bpm : 1935 (MM/DD/YYYY) Gender: Female Height: 64 in Age: 89 Years Weight: 201.723 lb BSA: 1.96 m² Reason For Study: HF eval History: HF eval - closed intertrochanteric fracture of left femur Interpretation Summary There is mild concentric increase in the wall thickness of the left ventricle. Global left ventricular systolic function is normal. The visual left ventricular ejection fraction is estimated at 55 to 60%. The right ventricle is mildly to moderately dilated. The right ventricular systolic function is normal. Mild to moderate tricuspid regurgitation present. The pulmonary artery systolic pressure, calculated from a peak tricuspid regurgitant velocity in conjunction with an estimated right atrial pressure, is 47mmHg. Left Ventricle: The left ventricle is normal in size. Proximal septal thickening is noted. Echo findings are not consistent with left ventricular outflow tract obstruction. There is mild concentric increase in the wall thickness of the left ventricle. Global left ventricular systolic function is normal. The visual left ventricular ejection fraction is estimated at 55 to 60%. No regional wall motion abnormalities are present. Diastolic function could not be accurately assessed due to atrial fibrillation. Right Ventricle: The right ventricle is mildly to moderately dilated. The right ventricular systolic function is normal. Aortic Valve: The aortic valve is trileaflet. The aortic valve is normal in structure and function. Aortic valve sclerosis is present without stenosis. The aortic valve is mildly thickened. No aortic regurgitation is present. Mitral Valve: The mitral valve leaflets appear thickened, but with normal motion. No evidence of mitral stenosis is seen. There is mild mitral regurgitation. Tricuspid Valve: The tricuspid valve leaflets are mildly thickened. There is no tricuspid stenosis. Mild to moderate tricuspid regurgitation present. Pulmonic Valve: The pulmonic valve is normal in structure and function. Trace pulmonic valvular regurgitation is present. Left Atrium: The left atrium is severely dilated. The left atrial volume indexed to body surface area is 64 ml/m2. This refers to the maximal volume measured prior to mitral valve opening. Right Atrium: The right atrium is severely dilated. The inferior vena cava is normal in diameter (<2.1cm) but collapse <50% with sniff (estimated right atrial pressure 5-10mmHg). Atrial Septum: The interatrial septum is shifted rightward, consistent with elevated left atrial pressure. The interatrial septum appears normal, without evidence of shunt by 2D imaging and color Doppler. Aorta: The diameter of the ascending aorta is 3.4 cm. The aorta at the sinus of Valsalva measures 3.1cm. Pulmonary Artery: The pulmonary artery systolic pressure is mildly increased. The pulmonary artery systolic pressure, calculated from a peak tricuspid regurgitant velocity in conjunction with an estimated right atrial pressure, is 47mmHg. Pericardium/Pleural Space: There is no pericardial effusion. Left Ventricle IVSd: 1.04 cm LVIDd: 4.9 cm LVPWd: 0.96 cm LVIDs: 2.8 cm ESV(sp4-el): 126.0 ml Atria LA dimension: 6.2 cm LAV(MOD-sp4): 109.1 ml LAV(MOD-sp2): 100.1 ml Aortic Valve LV V1 max: 71.6 cm/sec LV V1 max P.05 mmHg Ao max P.8 mmHg Ao V2 max: 120.3 cm/sec Tricuspid Valve TR max P.0 mmHg TR max flores: 304.2 cm/sec TV max P.0 mmHg Aorta Ao root diam: 3.1 cm MMode/2D Measurements & Calculations Ao root diam: 3.1 cm BMI: 34.6 kilograms/m² BSA(Haycock): 2.07 m² EF (est.): 57.7 % ESV(sp4-el): 126.0 ml IVSd: 1.04 cm LA A4C-A/L: 30.5 cm² LA dimension: 6.2 cm LA ESV-A/L: 120.7 ml LAV(MOD-sp2): 100.1 ml LAV(MOD-sp4): 109.1 ml LVIDd: 4.9 cm LVIDs: 2.8 cm LVPWd: 0.96 cm Doppler Measurements & Calculations Ao max P.8 mmHg Ao V2 max: 120.3 cm/sec LV V1 max: 71.6 cm/sec LV V1 max P.05 mmHg PA max P.7 mmHg PA V2 max: 81.5 cm/sec RAP systole: 10.0 mmHg TR max P.0 mmHg TR max flores: 304.2 cm/sec TV max P.0 mmHg Other Measurements & Calculations Ao root area: 7.4 cm² EDV(Teich): 112.0 ml EF(sp-el): 50.0 % EF(Teich): 73.1 % ESV(Teich): 30.1 ml FS: 42.2 % RVSP(TR): 47.0 mmHg Procedure Notes: A complete two-dimensional transthoracic echocardiogram was performed (2D, M- mode, Doppler and color flow Doppler). Indication: Evaluate cardiac and valve function. The patient was comfortable and cooperative throughout the procedure. CPT Codes: 64200/63209959: Transthoracic Echo with Spectral and Color Doppler. MD Anisa Jaimes 04/21/2025, 3: 52 PM Ordering Physician: Raad Monroe Referring Physician: Ivan Bright Performed By: Trina Kenyon RDCS
--- NOTE | 2025-04-21 17:36 | ADVANCE CARE PLANNING NOTE ---
Advance Care Planning Planning Encounter Date: 04/21/25 Purpose: determine care goal going foward. Parties in Attendance: Patient, Helene Jernigan BRITTANY Decisional Capacity of the Patient: alert and oriented with insight Diagnosis for Encounter (1) Closed intertrochanteric fracture of left femur: Qualifiers: Encounter type: initial encounter Fracture alignment: displaced Qualified Code(s): S72.142A - Displaced intertrochanteric fracture of left femur, initial encounter for closed fracture (2) Atrial fibrillation: Qualifiers: Atrial fibrillation type: unspecified Qualified Code(s): I48.91 - Unspecified atrial fibrillation (3) DM type 2 (diabetes mellitus, type 2): Qualifiers: Diabetes mellitus complication status: with hyperglycemia Diabetes mellitus manager long term care insulin use: unspecified residential insulin use status Qualified Code(s): E11.65 - Type 2 diabetes mellitus with hyperglycemia (4) Peripheral edema: Encounter Subjective/Patient's Story: 89-year-old female who recently left her home of many years in [facility] to live with her children. She is moving around quite frequently. Her daughter who is a retired teacher and lives in [place] is her primary residence and her power of employment law attorney. She has done well [employer]one[employer]. She states my kids take good care of me. Her Christianity damon is very important to her and she says when my heart stops I will be in the arms of Jaylen. Objective/Medical Story: She is admitted for a hip fracture with planned operative repair in the morning. She has a history of atrial fibrillation on Xarelto and stable. She has not been having any falls. She has type 2 diabetes which is controlled with metformin. She has been previously prescribed insulin but has not been using it and her A1c remains well-controlled. She flatly refuses SNF placement. She had a bad experience with a stay in rehab at the beginning of [facility] and she will never return. Goals of Care: She would like for medical science to intervene where it can but she realizes t hat when it is her time it is her time Plan: DNR selective treatment POLST was completed today. Code Status: Do Not Attempt Resuscitation Time spent on advance care planninmin
[2025-04-21] MEDS: ONDANSETRON ODT 4 MG TABLET TL ONE (17:41)
[2025-04-22 07:11] LABS: BUN - BLOOD UREA NITROGEN 14.0 mg/dL (6-20); CARBON DIOXIDE - CO2 24.0 mmol/L (21-32); CREATININE 0.6 mg/dL (0.6-1.3); GFR - MDRD 95.0 (>89)
--- NOTE | 2025-04-22 07:16 | ANESTHESIA PROCEDURE NOTE ---
Pre-Anesthesia VS, & Labs Diagnosis Surgical Diagnosis:: left hip fracture Procedure Procedure: left hip nailing Vitals Vital Signs: Temp Pulse Resp BP Pulse Ox 36.8 C 91 16 143/81 H 92 04/22/25 07:30 04/22/25 07:30 04/22/25 07:30 04/22/25 07:30 04/22/25 07:30 Is Patient ?: No Lab Results Current Lab Results: Laboratory Tests 04/22/25 07:32: POC Whole Bld Glucose 155 04/22/25 06:25: WBC 6.8, RBC 4.28, Hgb 11.8 L, Hct 36.1 L, MCV 84.3, MCH 27.6, MCHC 32.7, RDW 14.2, Plt Count 159, MPV 11.2 H, Neut # (Auto) 5.2, Lymph # (Auto) 0.7 L, [place] # (Auto) 0.8, Eos # (Auto) 0.1, Baso # (Auto) 0.0, Absolute Nucleated RBC 0.00, Nucleated RBC % 0.0, Sodium 132 L, Potassium 3.8, Chloride 102, Carbon Dioxide 24, Anion Gap 6.0, BUN 14, Creatinine 0.6, Estimated GFR (MDRD) 95, Glucose 154 H, Calcium 8.0 L 04/21/25 21:10: POC Whole Bld Glucose 179 04/21/25 16:36: POC Whole Bld Glucose 162 04/21/25 11:37: POC Whole Bld Glucose 202 04/21/25 07:40: POC Whole Bld Glucose 153 04/21/25 05:25: WBC 6.0, RBC 4.52, Hgb 12.4, Hct 38.7, MCV 85.6, MCH 27.4, MCHC 32.0, RDW 14.1, Plt Count 160, MPV 10.4, Neut # (Auto) 4.2, Lymph # (Auto) 0.9 L , [place] # (Auto) 0.8, Eos # (Auto) 0.1, Baso # (Auto) 0.0, Absolute Nucleated RBC 0.00, Nucleated RBC % 0.0, Sodium 134 L, Potassium 3.7, Chloride 103, Carbon Dioxide 25, Anion Gap 6.0, BUN 14, Creatinine 0.7, Estimated GFR (MDRD) 79 L, G lucose 176 H, Calcium 8.1 L 04/20/25 20:50: POC Whole Bld Glucose 175 04/20/25 16:35: POC Whole Bld Glucose 179 04/20/25 11:17: POC Whole Bld Glucose 149 04/20/25 07:25: POC Whole Bld Glucose 162 04/20/25 04:59: WBC 5.0, RBC 4.19 L, Hgb 11.6 L, Hct 35.3 L, MCV 84.2, MCH 27.7, MCHC 32.9, RDW 14.3, Plt Count 172, MPV 10.6, Neut # (Auto) 3.4, Lymph # (Auto) 0.9 L, [place] # (Auto) 0.7, Eos # (Auto) 0.0, Baso # (Auto) 0.0, Absolute Nucleated RBC 0.00, Nucleated RBC % 0.0, Sodium 136, Potassium 3.9, Chloride 106, Carbon Dioxide 25, Anion Gap 5.0 L, BUN 19, Creatinine 0.7, Estimated GFR (MDRD) 79 L, Glucose 163 H, Estimat Average Glucose 180 H, Hemoglobin A1c % 7.9 H, Calcium 8.6 04/19/25 20:40: POC Whole Bld Glucose 184 04/19/25 16:45: POC Whole Bld Glucose 139 04/19/25 14:39: WBC 6.8, RBC 4.81, Hgb 13.3, Hct 40.9, MCV 85.0, MCH 27.7, MCHC 32.5, RDW 14.1, Plt Count 205, MPV 10.5, Neut # (Auto) 5.4, Lymph # (Auto) 0.7 L , [place] # (Auto) 0.7, Eos # (Auto) 0.0, Baso # (Auto) 0.0, Absolute Nucleated RBC 0.00, Nucleated RBC % 0.0, PT 12.9 H, INR 1.1, Sodium 138, Potassium 5.0 H, Chloride 104, Carbon Dioxide 28, Anion Gap 6.0, BUN 24 H, Creatinine 0.8, E stimated GFR (MDRD) 68 L, Glucose 185 H, Calcium 9.8, Total Bilirubin 0.9, AST 13, ALT 8 L, Alkaline Phosphatase 54, Total Protein 6.9, Albumin 4.4, Globulin 2.5, Albumin/Globulin Ratio 1.8 04/22/25 06:25 04/22/25 06:25 Meds/Allgy Home Medications Ambulatory Orders Medication Instructions Recorded Confirmed dabigatran etexilate 110 mg 110 mg PO BID 04/19/25 capsule (Pradaxa) insulin NPH isoph U-100 human 100 30 unit subcut DAILY 04/19/25 04/20/25 unit/mL subcutaneous suspension (Novolin N NPH U-100 Insulin isophane) metformin 500 mg tablet,extended 1,000 mg PO DAILY 04/20/25 release 24 hr sertraline 50 mg tablet 50 mg PO DAILY 04/19/2504/04 atorvastatin 20 mg tablet 20 mg PO DAILY 04/20/2504/04 levothyroxine 50 mcg tablet 50 mcg PO QAM 04/20/25 tramadol 50 mg tablet 50 mg PO Q6H 04/20/25 Allergies Allergies Allergy/AdvReac Type Severity Reaction Status Date / Time Sulfa (Sulfonamide Allergy Intermediate Rash Verified 04/19/25 14:17 Antibiotics) PFSH Active Problems All Active Problems (Updated 04/19/25 @ 14:47 by María Heller RN) Atrial fibrillation (Chronic) DM type 2 (diabetes mellitus, type 2) (Acute) Chronic anticoagulation (Chronic) Closed intertrochanteric fracture of left femur (Acute) Confusion (Acute) Shortness of breath (Acute) Diabetes (Acute) Atrial fibrillation (Acute) Peripheral edema (Acute) Medical History Medical History (Updated 04/19/25 @ 14:47 by María Heller RN) Fall (on) (from) other stairs and steps, initial encounter Social History Social History (Updated 03/23/25 @ 22:36 by Nick Bonilla MD) Smoking Status: Smoker current status unk Second hand tobacco smoke exposure: No Do you dip or chew tobacco?: No Do you vape?: No Living arrangement: At home Level: Independent Home Mobility Equipment: Cane and Wheeled walker Do you feel safe in your home environment?: Yes History of physical, verbal, emotional, or financial abuse?: No POLST Patient has POLST: No Anesthesia Exam (Expanded) Exam General: Alert, Oriented x3 and Cooperative Dental: WNL Mouth Opening: Greater than 4 Fingerbreadths Neck Mobility: Normal Mallampati classification: II Thyromental Distance: greater than 6 cm Respiratory: Lungs clear Cardiovascular: Other (chronic AF, irregular, rate controlled 90-100s) Exam Exam Vital Signs: Vital Signs x48h Temp Pulse Resp BP Pulse Ox 04/22/25 07:30 36.8 C 91 16 143/81 H 92 Plan Problem List (1) Closed intertrochanteric fracture of left femur: Plan: The patient has a closed intertrochanteric fracture of the left hip and she will be cleared for surgery in the morning and we have her tentatively scheduled for 8 AM for intramedullary kirit placement.The patient is with one of her daughters and they both understand the risks and benefits of the procedure and a consent was signed. 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
[2025-04-22] MEDS ORDERED: ROPIVACAINE 0.5% PF 20 ML VIAL ONE ×2 (07:22→08:29)
[2025-04-22] MEDS ORDERED: DEXAMETHASONE 4 MG/ML VIAL ONE (07:22)
[2025-04-22] MEDS ORDERED: ONDANSETRON 4 MG/2 ML VIAL ONE ×2 (07:22→09:48)
[2025-04-22] MEDS ORDERED: ROCURONIUM 50 MG/5 ML VIAL ONE (07:22)
[2025-04-22] MEDS ORDERED: PROPOFOL 200 MG/20 ML VIAL IVP ONE (07:22)
[2025-04-22] MEDS ORDERED: fentaNYL 100 MCG/2 ML VIAL ONE ×2 (07:27→10:07)
[2025-04-22] MEDS ORDERED: BUPIVACAINE 0.25% PF 30 ML VIAL ONE (07:41)
[2025-04-22 07:54] LABS: HCT - HEMATOCRIT 36.1 % (37.0-47.0); HGB - HEMOGLOBIN 11.8 g/dL (12.0-16.0); MEAN PLATELET VOLUME 11.2 fL (7.9-10.8); NRBC ABSOLUTE COUNT (AUTO) 0.00 x10^3/uL; NUCLEATED RED BLOOD CELLS AUTO 0.0 /100WBC; PLT - PLATELET COUNT 159 10^3/uL (130-450); RED CELL DISTRIBUTION WIDTH 14.2 % (12.0-15.0)
[2025-04-22] MEDS ORDERED: ePHEDrine 50 MG/ML VIAL IVP ONE (08:30)
[2025-04-22] MEDS ORDERED: ePHEDrine 50 MG/ML VIAL IVP PRN (08:57)
[2025-04-22] MEDS ORDERED: METOCLOPRAMIDE 10 MG/2 ML VIAL IVP PRN (08:57)
[2025-04-22] MEDS ORDERED: ATROPINE ABBOJECT 1 MG/10 ML SYRINGE IVP PRN (08:57)
[2025-04-22] MEDS ORDERED: MORPHINE 2 MG/ML CARPUJECT IVP PRN (08:57)
[2025-04-22] MEDS ORDERED: NALOXONE 0.4 MG/ML VIAL IVP PRN (08:57)
[2025-04-22] MEDS ORDERED: SUGAMMADEX 200 MG/2 ML VIAL IVP ONE (09:10)
--- NOTE | 2025-04-22 09:29 | OPERATIVE REPORT ---
Operative Report General Admit Date: 04/19/25 Procedure Data: Operation Date: 04/22/25 08:00 Proposed Procedures p Hip Nailing(Left) - Doug Herrera DO Anesthesia Type General Case Staff Anesthesia Provider: Saige Azul Rep: RIRI MARTÍNEZ&TAJ. Case Times Procedure End: 04/22/25 09:21 Time out: 04/22/25 08:45 Implants INTERTAN 10S [id number] 125D LT INTERTAN SUBTROC LAG [id number] TRIGEN L-P SCREW 5MMX32.5MM Pre-Op Diagnosis: Left hip intertrochanteric fracture Post Op Diagnosis: Left hip intertrochanteric fracture Procedure Note Estimated Blood Loss (ml): 250 Indications: Left hip intertrochanteric fracture Other Other Information/Narrative: The patient was taken to the operative suite and after undergoing a general anesthetic she was placed on the fracture table with the left hip exposed and the right hip in the stirrup. The patient was prepped and draped in the usual sterile fashion. Under physician guided fluoroscopy we made sure that the fracture was completely reduced before making incision we then made an incision from the tip of the trochanter approximately about 7 cm long dissection was taken down through the tensor fascia norma and we identified the tip of the trochanter and we inserted the guidewire onto the tip of the trochanter and into the femur under physician guided fluoroscopy when that was done we reamed the hole out for the kirit without any complication we then took a 10 mm kirit and placed it down across the fracture site without any complication we then inserted the guidepin up into the femoral head we measured about 110 mm but because we were a little bit long we went down to 105 mm and then inserted 105 mm screw. We then used a medialize or to reduce the fracture and compress it and medialize the kirit a little bit when that was done we then locked the distal screw with a 30 2.5 millimeter screw. At that time we thoroughly irrigated both wounds and we closed the deep tissue with 0 Vicryl the subcu with a 2-0 Vicryl the skin was closed with nica a sterile dressing was applied and the patient was awakened and transferred stable to recovery room
[2025-04-22] MEDS ORDERED: HYDROmorphone 0.5 MG/0.5 ML SYRINGE ONE ×2 (09:44→09:53)
--- NOTE | 2025-04-22 09:48 | PROVIDER PROGRESS NOTE ---
Subjective Prog Note Date Prog Note Date: 04/22/25 Subjective Subjective: To the OR first thing this AM for repair of fracture. Pain is controlled except when she moves. Seen by PT this afternoon. Current Medications Current Medications Current Medications: Current Medications Generic Name Dose Route Start Last Admin Trade Name Freq PRN Reason Stop Dose Admin Acetaminophen 1,000 mg 04/19/25 15:49 04/22/25 05:57 Acetaminophen 500 Mg Tablet PO 1,000 mg TID BEN Administration Atropine Sulfate 0.5 mg 04/22/25 08:57 Atropine Abboject 1 Mg/10 Ml Syringe IVP 04/23/25 08:57 Q5M PRN Bradycardia Enoxaparin Sodium 40 mg 04/20/25 21:00 04/21/25 08:53 Enoxaparin 40 Mg/0.4 Ml Syringe SUBQ Not Given DAILY BEN Ephedrine Sulfate 10 mg 04/22/25 08:57 Ephedrine 50 Mg/Ml Vial IVP 04/23/25 08:57 Q5M PRN HYPOTENSION Fentanyl 25 - 50 mcg 04/22/25 08:57 Fentanyl 100 Mcg/2 Ml Vial IVP 04/23/25 08:57 Q5M PRN BREAKTHROUGH PAIN (2nd Choice) Furosemide 20 mg 04/20/25 09:00 04/21/25 08:51 Furosemide 20 Mg Tablet PO 20 mg DAILY BEN Administration Hydromorphone HCl 0.5 mg 04/19/25 15:49 04/22/25 09:44 Hydromorphone 0.5 Mg/0.5 Ml Syringe IVP 0.5 mg Q2H PRN Administration Pain 8 to 10 Hydromorphone HCl 0.2 - 0.6 mg 04/22/25 08:57 Hydromorphone 0.5 Mg/0.5 Ml Syringe IVP 04/23/25 08:57 Q5M PRN PAIN (First Choice) Lactated Ringer's 1,000 mls @ 100 mls/hr 04/19/25 15:49 04/22/25 05:57 Lr IV 100 mls/hr .Q10H BEN Administration Lactated Ringer's 1,000 mls @ 100 mls/hr 04/22/25 09:00 Lr IV 04/22/25 18:59 .Q10H BEN Insulin Human Lispro 1 - 5 unit 04/19/25 17:00 04/21/25 21:43 Insulin Lispro 300 Unit/3 Ml Pen SUBQ 1 unit 0800,1200,1700,2100 BEN Administration Protocol Levothyroxine Sodium 50 mcg 04/20/25 15:00 04/22/25 06:08 Levothyroxine 25 Mcg Tablet PO 50 mcg 0700 BEN Administration Metoclopramide HCl 10 mg 04/22/25 08:57 Metoclopramide 10 Mg/2 Ml Vial IVP Q6HR PRN N/V not relieved by Zofran Morphine Sulfate 2 - 4 mg 04/22/25 08:57 Morphine 2 Mg/Ml Carpuject IVP 04/23/25 08:57 Q5M PRN PAIN (3rd Choice) Naloxone HCl 0.1 mg 04/22/25 08:57 Naloxone 0.4 Mg/Ml Vial IVP 04/23/25 08:57 Q2M PRN RESP RATE <8 Nystatin 1 applic 04/19/25 21:00 04/21/25 21:44 Nystatin Powder 15 Gm TOP 1 applic BID BEN Administration Ondansetron HCl 4 mg 04/19/25 15:49 04/21/25 12:52 Ondansetron Odt 4 Mg Tablet TL 4 mg Q6HR PRN Administration Nausea / Vomiting Ondansetron HCl 4 mg 04/19/25 15:49 Ondansetron 4 Mg/2 Ml Vial IVP Q6HR PRN Nausea / Vomiting Ondansetron HCl 4 mg 04/22/25 08:57 Ondansetron 4 Mg/2 Ml Vial IVP 04/23/25 08:57 ONCE PRN N/V (First Choice) Oxycodone HCl 5 mg 04/19/25 15:49 04/21/25 16:27 Oxycodone 5 Mg Tablet PO 5 mg Q4HR PRN Administration Pain 5 to 7 Sertraline HCl 50 mg 04/21/25 09:00 04/21/25 08:51 Sertraline 50 Mg Tablet PO 50 mg DAILY BEN Administration Sodium Chloride 10 ml 04/19/25 15:49 Sodium Chloride Flush 0.9% 10 Ml Syringe IVP PRN PRN NEEDED PER PROVIDER ORDERS Sodium Chloride 10 ml 04/19/25 17:00 04/22/25 01:15 Sodium Chloride Flush 0.9% 10 Ml Syringe IVP 10 ml 0100,0900,1700 BEN Administration Objective Vital Signs/Intake & Output Reviewed Vital Signs: Yes Vital Signs: Vital Signs x48h Temp Pulse Pulse Resp BP BP Pulse Ox 04/22/25 09:40 103 H 20 156/86 H 95 04/22/25 09:35 36.5 C 95 15 151/96 H 95 04/22/25 07:30 36.8 C 91 16 143/81 H 92 Intake & Output: Intake & Output 04/19/25 04/20/25 04/21/25 04/22/25 23:59 23:59 23:59 23:59 Intake Total 200 / 200 3605 / 3605 2520 / 2520 738 / 738 Output Total 600 / 600 1750 / 1750 850 / 850 150 / 150 Balance -400 / -400 1855 / 1855 1670 / 1670 588 / 588 Weight (kg) 91.5 kg Objective General Appearance: positive No acute distress and Alert Eyes Bilateral: positive Normal inspection ENT: positive ENT inspection nml Neck: positive Nml inspection Respiratory: positive No respiratory distress and Breath sounds nml Cardiovascular: positive Regular rate & rhythm Abdomen: positive Non-tender and No distention Skin: positive Color nml and Other (mild venous stasis skin changes BLE) Extremities: positive Non-tender, No pedal edema and Other (left lower ext) Neurologic/Psychiatric: positive Oriented x3 Lab Results 04/22/25 06:25 04/22/25 06:25 Other Labs: Lab Results x24hrs 04/22/25 04/22/25 04/21/25 Range/Units 07:32 06:25 21:10 WBC 6.8 (4.8-10.8) x10^3/uL RBC 4.28 (4.20-5.40) 10^6/uL Hgb 11.8 L (12.0-16.0) g/dL Hct 36.1 L (37.0-47.0) % MCV 84.3 (81.0-99.0) fL MCH 27.6 (27.0-31.0) pg MCHC 32.7 (32.0-36.0) g/dL RDW 14.2 (12.0-15.0) % Plt Count 159 (130-450) 10^3/uL MPV 11.2 H (7.9-10.8) fL Neut # (Auto) 5.2 (1.5-6.6) 10^3/uL Lymph # (Auto) 0.7 L (1.5-3.5) 10^3/uL [place] # (Auto) 0.8 (0.0-1.0) 10^3/uL Eos # (Auto) 0.1 (0.0-0.7) 10^3/uL Baso # (Auto) 0.0 (0.0-0.1) 10^3/uL Absolute Nucleated RBC 0.00 x10^3/uL Nucleated RBC % 0.0 /100WBC Sodium 132 L (135-145) mmol/L Potassium 3.8 (3.5-4.5) mmol/L Chloride 102 (101-111) mmol/L Carbon Dioxide 24 (21-32) mmol/L Anion Gap 6.0 (6-13) BUN 14 (6-20) mg/dL Creatinine 0.6 (0.6-1.3) mg/dL Estimated GFR (MDRD) 95 (>89) Glucose 154 H (74-104) mg/dL POC Whole Bld Glucose 155 179 (70-100) mg/dL Calcium 8.0 L (8.5-10.3) mg/dL 04/21/25 04/21/25 Range/Units 16:36 11:37 WBC (4.8-10.8) x10^3/uL RBC (4.20-5.40) 10^6/uL Hgb (12.0-16.0) g/dL Hct (37.0-47.0) % MCV (81.0-99.0) fL MCH (27.0-31.0) pg MCHC (32.0-36.0) g/dL RDW (12.0-15.0) % Plt Count (130-450) 10^3/uL MPV (7.9-10.8) fL Neut # (Auto) (1.5-6.6) 10^3/uL Lymph # (Auto) (1.5-3.5) 10^3/uL [place] # (Auto) (0.0-1.0) 10^3/uL Eos # (Auto) (0.0-0.7) 10^3/uL Baso # (Auto) (0.0-0.1) 10^3/uL Absolute Nucleated RBC x10^3/uL Nucleated RBC % /100WBC Sodium (135-145) mmol/L Potassium (3.5-4.5) mmol/L Chloride (101-111) mmol/L Carbon Dioxide (21-32) mmol/L Anion Gap (6-13) BUN (6-20) mg/dL Creatinine (0.6-1.3) mg/dL Estimated GFR (MDRD) (>89) Glucose (74-104) mg/dL POC Whole Bld Glucose 162 202 (70-100) mg/dL Calcium (8.5-10.3) mg/dL Assessment/Plan Problem List (1) Closed intertrochanteric fracture of left femur: Impression: She is POD #0 Yakov to left femur for intertrochanteric fracture. EBL 250cc. Discussed with Dr Herrera. She has been seen by PT and SNF is recommended. Social work is in progress with this. patient is agreeable. I will add Calcium and Vit D post op for fracture healing. Qualifiers: Encounter type: initial encounter Fracture alignment: displaced Q ualified Code(s): S72.142A - Displaced intertrochanteric fracture of left femur, initial encounter for closed fracture (2) Atrial fibrillation: Impression: Preliminary med rec does not show any rate control drugs i am restarting DOAC tonight, eliquis as that is formulary. Rate currently controlled without medication- I have restarted home meds. She has had some tachycardia to the low 100's this evening, likely secondary to pain. Qualifiers: Atrial fibrillation type: unspecified Qualified Code(s): I48.91 - Unspecified atrial fibrillation (3) DM type 2 (diabetes mellitus, type 2): Impression: A1C is 7.9%. She has taken insulin only about 3 times over the summer. She is careful with her diet. She is complaint with metformin. She is on SSI right now. I will keep her blood sugars less than 180 while hospitalized. I will discharge her to resume metformin, and recomend lower carb diet, and peggy A1C in 3 month. I will not continue insulin on dc. With holding her metformin, she has been >180 at times. I am treating with SSI, low dose. Laboratory Tests 04/22/25 04/22/25 04/22/25 07:32 09:52 11:48 POC Whole Bld Glucose 155 153 167 04/22/25 16:41 POC Whole Bld Glucose 213 Qualifiers: Diabetes mellitus complication status: with hyperglycemia Diabetes mellitus exterminator helper insulin use: unspecified exterminator helper insulin use status Q ualified Code(s): E11.65 - Type 2 diabetes mellitus with hyperglycemia (4) Peripheral edema: Impression: Echo pending. started on lasix for symptoms of leg swelling several months ago. Echo shows mild LVH, LVEF estimate is 55-60%. Mild increase in the PA SP, there is right atrial dilation. This patient's diagnosis and treatment plan was discussed this AM with attending physician as a part of multi disciplinary rounding meeting. I have spent 43 minutes in the care of this patient today. This includes time [id number], review and ordering of diagnostic imaging and laboratory studies.
[2025-04-22] MEDS: ONDANSETRON 4 MG/2 ML VIAL IVP PRN (09:49)
[2025-04-22] MEDS: HYDROmorphone 0.5 MG/0.5 ML SYRINGE IVP PRN (09:54)
[2025-04-22] MEDS: LACTATED RINGERS 1,000 ML IV SCH (09:55)
[2025-04-22] MEDS: fentaNYL 100 MCG/2 ML VIAL IVP PRN (10:08)
--- NOTE | 2025-04-22 11:14 | ANESTHESIA POST OP EVALUATION ---
Anesthesia Post Eval Post Anesthesia Eval Vitals: Last Vital Signs Temp 36.4 C L 04/22/25 10:25 Pulse 109 H 04/22/25 10:30 Resp 13 04/22/25 10:30 BP 123/78 04/22/25 10:30 Pulse Ox 94 04/22/25 10:30 CV Function Including HR & BP: Stable Pain Control: Satisfactory Nausea & Vomiting: Negative Mental Status: Baseline Respiratory Status: Airway Patent Hydration Status: Satisfactory Anesthesia Complications: None
[2025-04-22] MEDS ORDERED: SODIUM CHLORIDE FLUSH 0.9% 10 ML SYRINGE IVP PRN (13:26)
--- NOTE | 2025-04-22 16:47 | PT Plan of Care ---
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 No hip precautions per ortho; plan for PWB progressing toward WBAT as appropriate. Please see medical record for PMH. Cleared for eval by hospitalist and ortho. Pt was Andrew at baseline, lives in [facility] with family. Upon PT eval, pt supine in bed A&Ox4 on 2L O2 with SpO2 97%, catheter. Reports 1/10 pain at rest and agreeable to participate. Sensation and motor function WNL in BLE. Moderate BLE swelling, no notable bruising. One area of skin breakdown at L inguinal region, nsg made aware. Pt transfers with mod to maxAx1 and immediately begins hyperventilating once seated upright. Pt endorses anxiety disorder. Requires max multimodal cueing to redirect and reduce RR WNL . Unable to assess standing or gait during eval due to high anxiety, hyperventilation and pain in seated position. Pt required maxAx2 for sit to supine transfer. PT advised nsg use lift equipment for transfers. Pt presenting with notable mobility impairments and limitations in activity tolerance, endurance, and pain. Pt will benefit from continued skilled PT in acute setting to progress functional mobility and initiate gait training. When medically clear, PT rec dc to SNF for further rehab. Goals Improve bed mobility to: Minimal Assist Improve supine to sit to: Minimal Assist Improve sit to stand to: Minimal Assist Improve pivot transfer ability Minimal Assist to: Improve sit to supine to: Minimal Assist Improve gait ability to: Min A Assistive Device Used: Front Wheeled Walker Improve Sitting Balance to: Good Improve Standing Balance to: Fair PT Plan of Care Frequency 1-2x/day Duration Until discharge Discharge Recommendations [facility]charge Location [facility] Other TBD Transport Needs at Discharge B.[facility] Other BLS d/t recent fx, poor trunk control
[2025-04-22] MEDS: SODIUM CHLORIDE FLUSH 0.9% 10 ML SYRINGE IVP SCH (18:06)
[2025-04-22] MEDS: CALCIUM CARBONATE CHEW 500 MG TABLET PO SCH (21:57)
[2025-04-22] MEDS: NYSTATIN POWDER 15 GM TOP SCH (22:07)
[2025-04-23 06:27] LABS: HCT - HEMATOCRIT 34.0 % (37.0-47.0); HGB - HEMOGLOBIN 10.8 g/dL (12.0-16.0); MEAN PLATELET VOLUME 10.7 fL (7.9-10.8); NRBC ABSOLUTE COUNT (AUTO) 0.00 x10^3/uL; NUCLEATED RED BLOOD CELLS AUTO 0.0 /100WBC; PLT - PLATELET COUNT 201 10^3/uL (130-450); RED CELL DISTRIBUTION WIDTH 14.0 % (12.0-15.0)
[2025-04-23 06:51] LABS: BUN - BLOOD UREA NITROGEN 12.0 mg/dL (6-20); CARBON DIOXIDE - CO2 25.0 mmol/L (21-32); CREATININE 0.8 mg/dL (0.6-1.3); GFR - MDRD 68.0 (>89)
[2025-04-23] MEDS: CHOLECALCIFEROL 400 UNIT TABLET PO SCH (08:43)
--- NOTE | 2025-04-23 13:21 | PROVIDER PROGRESS NOTE ---
Subjective Prog Note Date Prog Note Date: 04/23/25 Subjective Subjective: She is alert, and oriented now, but I am hearing reports of confusion overnight. She admits that maybe she was confused, but is better now. Vazquez remove this AM, she is voiding Current Medications Current Medications Current Medications: Current Medications Generic Name Dose Route Start Last Admin Trade Name Freq PRN Reason Stop Dose Admin Acetaminophen 1,000 mg 04/19/25 15:49 04/23/25 05:45 Acetaminophen 500 Mg Tablet PO 1,000 mg TID BEN Administration Acetaminophen 650 mg 04/22/25 13:26 Acetaminophen 325 Mg Tablet PO Q4HR PRN Pain 1 to 4, or Fever Apixaban 5 mg 04/23/25 21:00 Apixaban 5 Mg Tablet PO BID BEN Calcium Carbonate/Glycine 500 mg 04/22/25 21:00 04/23/25 08:43 Calcium Carbonate Chew 500 Mg Tablet PO 500 mg BID BEN Administration Cholecalciferol 400 unit 04/23/25 09:00 04/23/25 08:43 Cholecalciferol 400 Unit Tablet PO 400 unit DAILY BEN Administration Furosemide 20 mg 04/20/25 09:00 04/23/25 08:43 Furosemide 20 Mg Tablet PO 20 mg DAILY BEN Administration Hydromorphone HCl 0.5 mg 04/19/25 15:49 04/22/25 11:25 Hydromorphone 0.5 Mg/0.5 Ml Syringe IVP 0.5 mg Q2H PRN Administration Pain 8 to 10 Insulin Human Lispro 1 - 5 unit 04/19/25 17:00 04/23/25 12:19 Insulin Lispro 300 Unit/3 Ml Pen SUBQ 1 unit 0800,1200,1700,2100 BEN Administration Protocol Levothyroxine Sodium 50 mcg 04/20/25 15:00 04/23/25 05:45 Levothyroxine 25 Mcg Tablet PO 50 mcg 0700 BEN Administration Metformin HCl 1,000 mg 04/23/25 12:00 04/23/25 12:20 Metformin 500 Mg Tablet PO 1,000 mg DAILYWM BEN Administration Nystatin 1 applic 04/19/25 21:00 04/23/25 08:43 Nystatin Powder 15 Gm TOP 1 applic BID BEN Administration Nystatin 1 applic 04/22/25 22:00 04/23/25 08:44 Nystatin Powder 15 Gm TOP 1 applic BID BEN Administration Ondansetron HCl 4 mg 04/19/25 15:49 04/21/25 12:52 Ondansetron Odt 4 Mg Tablet TL 4 mg Q6HR PRN Administration Nausea / Vomiting Ondansetron HCl 4 mg 04/19/25 15:49 Ondansetron 4 Mg/2 Ml Vial IVP Q6HR PRN Nausea / Vomiting Oxycodone HCl 5 mg 04/19/25 15:49 04/22/25 19:21 Oxycodone 5 Mg Tablet PO 5 mg Q4HR PRN Administration Pain 5 to 7 Sertraline HCl 50 mg 04/21/25 09:00 04/23/25 08:43 Sertraline 50 Mg Tablet PO 50 mg DAILY BEN Administration Sodium Chloride 10 ml 04/19/25 15:49 Sodium Chloride Flush 0.9% 10 Ml Syringe IVP PRN PRN NEEDED PER PROVIDER ORDERS Sodium Chloride 10 ml 04/19/25 17:00 04/23/25 08:44 Sodium Chloride Flush 0.9% 10 Ml Syringe IVP 10 ml 0100,0900,1700 BEN Administration Sodium Chloride 10 ml 04/22/25 13:26 Sodium Chloride Flush 0.9% 10 Ml Syringe IVP PRN PRN NEEDED PER PROVIDER ORDERS Sodium Chloride 10 ml 04/22/25 17:00 04/23/25 08:44 Sodium Chloride Flush 0.9% 10 Ml Syringe IVP 10 ml 0100,0900,1700 BEN Administration Objective Vital Signs/Intake & Output Reviewed Vital Signs: Yes Vital Signs: Vital Signs x48h Temp Pulse Resp BP BP Pulse Ox O2 Flow Rate 04/23/25 09:10 0.5 04/23/25 09:06 36.7 C 110 H 16 139/78 H 98 0.5 04/23/25 05:46 36.6 C 102 H 18 138/81 H 96 0.5 Intake & Output: Intake & Output 04/20/25 04/21/25 04/22/25 04/23/25 23:59 23:59 23:59 23:59 Intake Total 3605 / 3605 2520 / 2520 1775 / 1775 720 / 720 Output Total 1750 / 1750 850 / 850 1335 / 1335 1075 / 1075 Balance 1855 / 1855 1670 / 1670 440 / 440 -355 / -355 Objective General Appearance: positive No acute distress and Alert Eyes Bilateral: positive Normal inspection ENT: positive ENT inspection nml Neck: positive Nml inspection Respiratory: positive No respiratory distress and Breath sounds nml Cardiovascular: positive Regular rate & rhythm Abdomen: positive Non-tender and No distention Skin: positive Color nml and Other (mild venous stasis skin changes BLE) Extremities: positive Non-tender, No pedal edema and Other (left lower ext dressing c/d/i) Neurologic/Psychiatric: positive Oriented x3 Lab Results 04/23/25 06:02 04/23/25 06:02 Other Labs: Lab Results x24hrs 04/23/25 04/23/25 04/22/25 Range/Units 11:35 06:02 21:31 WBC 6.6 (4.8-10.8) x10^3/uL RBC 3.98 L (4.20-5.40) 10^6/uL Hgb 10.8 L (12.0-16.0) g/dL Hct 34.0 L (37.0-47.0) % MCV 85.4 (81.0-99.0) fL MCH 27.1 (27.0-31.0) pg MCHC 31.8 L (32.0-36.0) g/dL RDW 14.0 (12.0-15.0) % Plt Count 201 (130-450) 10^3/uL MPV 10.7 (7.9-10.8) fL Neut # (Auto) 5.0 (1.5-6.6) 10^3/uL Lymph # (Auto) 0.8 L (1.5-3.5) 10^3/uL [place] # (Auto) 0.8 (0.0-1.0) 10^3/uL Eos # (Auto) 0.0 (0.0-0.7) 10^3/uL Baso # (Auto) 0.0 (0.0-0.1) 10^3/uL Absolute Nucleated RBC 0.00 x10^3/uL Nucleated RBC % 0.0 /100WBC Sodium 135 (135-145) mmol/L Potassium 3.9 (3.5-4.5) mmol/L Chloride 102 (101-111) mmol/L Carbon Dioxide 25 (21-32) mmol/L Anion Gap 8.0 (6-13) BUN 12 (6-20) mg/dL Creatinine 0.8 (0.6-1.3) mg/dL Estimated GFR (MDRD) 68 L (>89) Glucose 168 H (74-104) mg/dL POC Whole Bld Glucose 150 194 (70-100) mg/dL Calcium 8.2 L (8.5-10.3) mg/dL 04/22/25 Range/Units 16:41 WBC (4.8-10.8) x10^3/uL RBC (4.20-5.40) 10^6/uL Hgb (12.0-16.0) g/dL Hct (37.0-47.0) % MCV (81.0-99.0) fL MCH (27.0-31.0) pg MCHC (32.0-36.0) g/dL RDW (12.0-15.0) % Plt Count (130-450) 10^3/uL MPV (7.9-10.8) fL Neut # (Auto) (1.5-6.6) 10^3/uL Lymph # (Auto) (1.5-3.5) 10^3/uL [place] # (Auto) (0.0-1.0) 10^3/uL Eos # (Auto) (0.0-0.7) 10^3/uL Baso # (Auto) (0.0-0.1) 10^3/uL Absolute Nucleated RBC x10^3/uL Nucleated RBC % /100WBC Sodium (135-145) mmol/L Potassium (3.5-4.5) mmol/L Chloride (101-111) mmol/L Carbon Dioxide (21-32) mmol/L Anion Gap (6-13) BUN (6-20) mg/dL Creatinine (0.6-1.3) mg/dL Estimated GFR (MDRD) (>89) Glucose (74-104) mg/dL POC Whole Bld Glucose 213 (70-100) mg/dL Calcium (8.5-10.3) mg/dL Assessment/Plan Problem List (1) Closed intertrochanteric fracture of left femur: Impression: She is POD #1 Yakov to left femur for intertrochanteric fracture. EBL 250cc. Discussed with Dr Herrera today. he is in agreement with dc to SNF. She has been seen by PT and SNF is recommended. Social work is in progress with this. patient is agreeable. I have added Calcium and Vit D post op for fracture healing. Vazquez is out and she is voiding. Qualifiers: Encounter type: initial encounter Fracture alignment: displaced Q ualified Code(s): S72.142A - Displaced intertrochanteric fracture of left femur, initial encounter for closed fracture (2) Atrial fibrillation: Impression: Preliminary med rec does not show any rate control drugs Eliquis has been restarted. Rate currently controlled without medication- I have restarted home meds. She is tachycardic consistently, and normotensive to mildly hypertensive. I think she would benefit from a beta james. I am going to start metoprolol tartrate, 12.5mg BID 04/22/25 19:30 04/22/25 23:00 04/23/25 01:15 Pulse Rate [Brachial] 105 H 103 H 103 H Blood Pressure [Left Brachial artery] 140/87 H 135/87 H 124/80 Blood Pressure [Right Brachial artery] 04/23/25 05:46 04/23/25 09:06 Pulse Rate [Brachial] 102 H 110 H Blood Pressure [Left Brachial artery] 139/78 H Blood Pressure [Right Brachial artery] 138/81 H Qualifiers: Atrial fibrillation type: unspecified Qualified Code(s): I48.91 - Unspecified atrial fibrillation (3) Delirium: Impression: She had some disorientation overnight. she is taking occasional oxycodone, 1-2 doses every 24 hours. This has cleared today, she is oriented x3 and to situation. She admits to some confusion overnight, as well as in the pre operative period. I think this is hospital induced. Her shades are down in the middle of the day. I have raised them up, and have explained to the patient that she needs to expose herself to environmental cues. (4) DM type 2 (diabetes mellitus, type 2): Impression: A1C is 7.9%. She has taken insulin only about 3 times over the summer. She is careful with her diet. She is complaint with metformin. She is on SSI right now. I will keep her blood sugars less than 180 while hospitalized. I will discharge her to resume metformin, and recomend lower carb diet, and peggy A1C in 3 month. I will not continue insulin on dc. With holding her metformin, she has been >180 at times. I am restarting this today, as she is medically clear for SNF. I am treating with SSI, low dose. 04/22/25 04/22/25 04/22/25 11:48 16:41 21:31 POC Whole Bld Glucose 167 213 194 04/23/25 11:35 POC Whole Bld Glucose 150 Qualifiers: Diabetes mellitus complication status: with hyperglycemia Diabetes mellitus terminal carman insulin use: unspecified terminal carman insulin use status Q ualified Code(s): E11.65 - Type 2 diabetes mellitus with hyperglycemia (5) Peripheral edema: Impression: started on lasix for symptoms of leg swelling several months ago. Echo shows mild LVH, LVEF estimate is 55-60%. Mild increase in the PA SP, there is right atrial dilation. LAsix has been continued. This patient's diagnosis and treatment plan was discussed this AM with attending physician as a part of multi disciplinary rounding meeting. I have spent 48 minutes in the care of this patient today. This includes time [id number], review and ordering of diagnostic imaging and laboratory studies.
[2025-04-23 17:09] LABS: GLUCOSE, URINE (UA) NEGATIVE (NEGATIVE); KETONES,URINE (UA) NEGATIVE (NEGATIVE); OCCULT BLOOD,URINE NEGATIVE (NEGATIVE); SQUAMOUS EPITHELIAL CELL,UR FEW Squamous (<= Few)
[2025-04-23] MEDS: METOPROLOL TARTRATE 25 MG TABLET PO SCH (22:36)
[2025-04-23] MEDS: APIXABAN 5 MG TABLET PO SCH (22:36)
[2025-04-24 06:06] LABS: HCT - HEMATOCRIT 30.1 % (37.0-47.0); HGB - HEMOGLOBIN 9.9 g/dL (12.0-16.0); MEAN PLATELET VOLUME 10.9 fL (7.9-10.8); NRBC ABSOLUTE COUNT (AUTO) 0.00 x10^3/uL; NUCLEATED RED BLOOD CELLS AUTO 0.0 /100WBC; PLT - PLATELET COUNT 195 10^3/uL (130-450); RED CELL DISTRIBUTION WIDTH 14.3 % (12.0-15.0)
[2025-04-24 06:24] LABS: BUN - BLOOD UREA NITROGEN 17.0 mg/dL (6-20); CARBON DIOXIDE - CO2 26.0 mmol/L (21-32); CREATININE 0.8 mg/dL (0.6-1.3); GFR - MDRD 68.0 (>89)
[2025-04-24] MEDS ORDERED: cefTRIAXone 1 GM in SODIUM CHLORIDE 0.9% MINIBAG 100 ML IV SCH (11:00)
[2025-04-24] MEDS: cefTRIAXone 1 GM VIAL IVP SCH (12:31)
--- NOTE | 2025-04-24 12:33 | PROVIDER PROGRESS NOTE ---
Subjective Prog Note Date Prog Note Date: 04/24/25 Subjective Subjective: confusion overnight, but oriented x 4 today. She is happy and feeling well. Current Medications Current Medications Current Medications: Current Medications Generic Name Dose Route Start Last Admin Trade Name Freq PRN Reason Stop Dose Admin Acetaminophen 1,000 mg 04/19/25 15:49 04/24/25 06:43 Acetaminophen 500 Mg Tablet PO 1,000 mg TID BEN Administration Acetaminophen 650 mg 04/22/25 13:26 Acetaminophen 325 Mg Tablet PO Q4HR PRN Pain 1 to 4, or Fever Apixaban 5 mg 04/23/25 21:00 04/24/25 08:35 Apixaban 5 Mg Tablet PO 5 mg BID BEN Administration Calcium Carbonate/Glycine 500 mg 04/22/25 21:00 04/24/25 08:36 Calcium Carbonate Chew 500 Mg Tablet PO 500 mg BID BEN Administration Ceftriaxone Sodium 1 gm 04/24/25 11:00 Ceftriaxone 1 Gm Vial IVP DAILY BEN Cholecalciferol 400 unit 04/23/25 09:00 04/24/25 08:35 Cholecalciferol 400 Unit Tablet PO 400 unit DAILY BEN Administration Furosemide 20 mg 04/20/25 09:00 04/24/25 08:35 Furosemide 20 Mg Tablet PO 20 mg DAILY BEN Administration Hydromorphone HCl 0.5 mg 04/19/25 15:49 04/24/25 04:54 Hydromorphone 0.5 Mg/0.5 Ml Syringe IVP 0.5 mg Q2H PRN Administration Pain 8 to 10 Insulin Human Lispro 1 - 5 unit 04/19/25 17:00 04/24/25 08:28 Insulin Lispro 300 Unit/3 Ml Pen SUBQ Not Given 0800,1200,1700,2100 [facility] Protocol Levothyroxine Sodium 50 mcg 04/20/25 15:00 04/24/25 06:43 Levothyroxine 25 Mcg Tablet PO 50 mcg 0700 BEN Administration Metformin HCl 1,000 mg 04/23/25 12:00 04/24/25 08:36 Metformin 500 Mg Tablet PO 1,000 mg DAILYWM BEN Administration Metoprolol Tartrate 12.5 mg 04/23/25 21:00 04/24/25 08:29 Metoprolol Tartrate 25 Mg Tablet PO 12.5 mg BID BEN Administration Nystatin 1 applic 04/19/25 21:00 04/24/25 08:36 Nystatin Powder 15 Gm TOP 1 applic BID BEN Administration Ondansetron HCl 4 mg 04/19/25 15:49 04/21/25 12:52 Ondansetron Odt 4 Mg Tablet TL 4 mg Q6HR PRN Administration Nausea / Vomiting Ondansetron HCl 4 mg 04/19/25 15:49 Ondansetron 4 Mg/2 Ml Vial IVP Q6HR PRN Nausea / Vomiting Oxycodone HCl 5 mg 04/19/25 15:49 04/23/25 19:35 Oxycodone 5 Mg Tablet PO 5 mg Q4HR PRN Administration Pain 5 to 7 Sertraline HCl 50 mg 04/21/25 09:00 04/24/25 08:35 Sertraline 50 Mg Tablet PO 50 mg DAILY BEN Administration Sodium Chloride 10 ml 04/19/25 15:49 Sodium Chloride Flush 0.9% 10 Ml Syringe IVP PRN PRN NEEDED PER PROVIDER ORDERS Sodium Chloride 10 ml 04/19/25 17:00 04/24/25 08:36 Sodium Chloride Flush 0.9% 10 Ml Syringe IVP 10 ml 0100,0900,1700 BEN Administration Sodium Chloride 10 ml 04/22/25 13:26 Sodium Chloride Flush 0.9% 10 Ml Syringe IVP PRN PRN NEEDED PER PROVIDER ORDERS Sodium Chloride 10 ml 04/22/25 17:00 04/24/25 08:36 Sodium Chloride Flush 0.9% 10 Ml Syringe IVP 10 ml 0100,0900,1700 BEN Administration Sterile Water 10 ml 04/24/25 11:00 Water For Injection,Sterile 10 Ml Vial MC DAILY BEN Objective Vital Signs/Intake & Output Reviewed Vital Signs: Yes Vital Signs: Vital Signs x48h Temp Pulse Pulse Resp BP BP Pulse Ox 04/24/25 08:32 36.3 C L 88 22 105/58 L 96 04/24/25 08:29 83 105/58 L Intake & Output: Intake & Output 04/21/25 04/22/25 04/23/25 04/24/25 23:59 23:59 23:59 23:59 Intake Total 2520 / 2520 1775 / 1775 2300 / 2300 150 / 150 Output Total 850 / 850 1335 / 1335 1255 / 1255 1900 / 1900 Balance 1670 / 1670 440 / 440 1045 / 1045 -1750 / -1750 Objective General Appearance: positive No acute distress and Alert Eyes Bilateral: positive Normal inspection ENT: positive ENT inspection nml Neck: positive Nml inspection Respiratory: positive No respiratory distress and Breath sounds nml Cardiovascular: positive Regular rate & rhythm Abdomen: positive Non-tender and No distention Skin: positive Color nml and Other (mild venous stasis skin changes BLE) Extremities: positive Non-tender, No pedal edema and Other (left lower ext dressing stained, replaced) Neurologic/Psychiatric: positive Oriented x3 Lab Results 04/24/25 04:59 04/24/25 04:59 Other Labs: Lab Results x24hrs 04/24/25 04/24/25 04/24/25 Range/Units 11:45 07:43 04:59 WBC 5.5 (4.8-10.8) x10^3/uL RBC 3.55 L (4.20-5.40) 10^6/uL Hgb 9.9 L (12.0-16.0) g/dL Hct 30.1 L (37.0-47.0) % MCV 84.8 (81.0-99.0) fL MCH 27.9 (27.0-31.0) pg MCHC 32.9 (32.0-36.0) g/dL RDW 14.3 (12.0-15.0) % Plt Count 195 (130-450) 10^3/uL MPV 10.9 H (7.9-10.8) fL Neut # (Auto) 3.6 (1.5-6.6) 10^3/uL Lymph # (Auto) 1.1 L (1.5-3.5) 10^3/uL [place] # (Auto) 0.6 (0.0-1.0) 10^3/uL Eos # (Auto) 0.1 (0.0-0.7) 10^3/uL Baso # (Auto) 0.0 (0.0-0.1) 10^3/uL Absolute Nucleated RBC 0.00 x10^3/uL Nucleated RBC % 0.0 /100WBC Sodium 135 (135-145) mmol/L Potassium 3.5 (3.5-4.5) mmol/L Chloride 104 (101-111) mmol/L Carbon Dioxide 26 (21-32) mmol/L Anion Gap 5.0 L (6-13) BUN 17 (6-20) mg/dL Creatinine 0.8 (0.6-1.3) mg/dL Estimated GFR (MDRD) 68 L (>89) Glucose 140 H (74-104) mg/dL POC Whole Bld Glucose 165 133 (70-100) mg/dL Calcium 8.1 L (8.5-10.3) mg/dL Urine Color Urine Clarity (CLEAR) Urine pH (5.0-7.5) PH Ur Specific [place] (1.002-1.030) Urine Protein (NEGATIVE) mg/dL Urine Glucose (UA) (NEGATIVE) mg/dL Urine Ketones (NEGATIVE) mg/dL Urine Occult Blood (NEGATIVE) Urine Nitrite (NEGATIVE) Urine Bilirubin (NEGATIVE) Urine Urobilinogen (NORMAL) E.U./dL Ur Leukocyte Esterase (NEGATIVE) Urine RBC (0-5) /HPF Urine WBC (0-5) /HPF Ur Squamous Epith Cells (<= Few) Urine Bacteria (None Seen) /HPF Urine Culture Comments 04/23/25 04/23/25 04/23/25 Range/Units 21:44 16:36 16:35 WBC (4.8-10.8) x10^3/uL RBC (4.20-5.40) 10^6/uL Hgb (12.0-16.0) g/dL Hct (37.0-47.0) % MCV (81.0-99.0) fL MCH (27.0-31.0) pg MCHC (32.0-36.0) g/dL RDW (12.0-15.0) % Plt Count (130-450) 10^3/uL MPV (7.9-10.8) fL Neut # (Auto) (1.5-6.6) 10^3/uL Lymph # (Auto) (1.5-3.5) 10^3/uL [place] # (Auto) (0.0-1.0) 10^3/uL Eos # (Auto) (0.0-0.7) 10^3/uL Baso # (Auto) (0.0-0.1) 10^3/uL Absolute Nucleated RBC x10^3/uL Nucleated RBC % /100WBC Sodium (135-145) mmol/L Potassium (3.5-4.5) mmol/L Chloride (101-111) mmol/L Carbon Dioxide (21-32) mmol/L Anion Gap (6-13) BUN (6-20) mg/dL Creatinine (0.6-1.3) mg/dL Estimated GFR (MDRD) (>89) Glucose (74-104) mg/dL POC Whole Bld Glucose 203 157 (70-100) mg/dL Calcium (8.5-10.3) mg/dL Urine Color YELLOW Urine Clarity HAZY (CLEAR) Urine pH 6.5 (5.0-7.5) PH Ur Specific [place] 1.010 (1.002-1.030) Urine Protein NEGATIVE (NEGATIVE) mg/dL Urine Glucose (UA) NEGATIVE (NEGATIVE) mg/dL Urine Ketones NEGATIVE (NEGATIVE) mg/dL Urine Occult Blood NEGATIVE (NEGATIVE) Urine Nitrite NEGATIVE (NEGATIVE) Urine Bilirubin NEGATIVE (NEGATIVE) Urine Urobilinogen 0.2 (NORMAL) (NORMAL) E.U./dL Ur Leukocyte Esterase MODERATE H (NEGATIVE) Urine RBC 0-5 (0-5) /HPF Urine WBC 11-25 H (0-5) /HPF Ur Squamous Epith Cells FEW Squamous (<= Few) Urine Bacteria Few (None Seen) /HPF Urine Culture Comments INDICATED Assessment/Plan Problem List (1) Closed intertrochanteric fracture of left femur: Impression: She is POD #2 Yakov to left femur for intertrochanteric fracture. EBL 250cc. Some strike through on the dressing, which I changed today. no active bleeding at the wound She has been seen by PT and SNF is recommended. Social work is in progress with this. patient is agreeable. I have added Calcium and Vit D post op for fracture healing. Vazquez is out and she is voiding. Qualifiers: Encounter type: initial encounter Fracture alignment: displaced Q ualified Code(s): S72.142A - Displaced intertrochanteric fracture of left femur, initial encounter for closed fracture (2) Urinary tract infection: Impression: She has been started on Rocephin 1 g daily. Urine culture is pending at this time shows greater than 100,000 colony forming units of gram-negative bacteria. (3) Atrial fibrillation: Impression: Preliminary med rec does not show any rate control drugs Eliquis has been restarted. Rate currently controlled without medication- I have restarted home meds. She is tachycardic consistently, and normotensive to mildly hypertensive. I think she would benefit from a beta james. Metoprolol tartrate 12.5mg started 04/23. Selected Entries 04/24/25 01:00 04/24/25 08:29 04/24/25 08:32 Pulse Rate 83 Pulse Rate [Brachial] 94 88 Blood Pressure 105/58 L Blood Pressure [Left Brachial artery] 108/63 Blood Pressure [Right Brachial artery] 105/58 L 04/24/25 17:12 Pulse Rate Pulse Rate [Brachial] 97 Blood Pressure Blood Pressure [Left Brachial artery] Blood Pressure [Right Brachial artery] 104/55 L Qualifiers: Atrial fibrillation type: unspecified Qualified Code(s): I48.91 - Unspecified atrial fibrillation (4) Delirium: Impression: Some hospital delirium which is imprving. Could have been due to UTI which was detected yesterday (5) DM type 2 (diabetes mellitus, type 2): Impression: A1C is 7.9%. She has taken insulin only about 3 times over the summer. She is careful with her diet. She is complaint with metformin. She is on SSI right now. I will keep her blood sugars less than 180 while hospitalized. I will discharge her to resume metformin, and recomend lower carb diet, and peggy A1C in 3 month. I will not continue insulin on dc. With holding her metformin, she has been >180 at times. Metformin stated 04/23, as she was medically clear for SNF. 04/23/25 04/23/25 04/24/25 16:36 21:44 07:43 POC Whole Bld Glucose 157 203 133 04/24/25 04/24/25 11:45 16:28 POC Whole Bld Glucose 165 153 Qualifiers: Diabetes mellitus complication status: with hyperglycemia Diabetes mellitus intermediate insulin use: unspecified intermediate project manager insulin use status Q ualified Code(s): E11.65 - Type 2 diabetes mellitus with hyperglycemia (6) Peripheral edema: Impression: started on lasix for symptoms of leg swelling several months ago. Echo shows mild LVH, LVEF estimate is 55-60%. Mild increase in the PA SP, there is right atrial dilation. LAsix has been continued. This patient's diagnosis and treatment plan was discussed this AM with attending physician as a part of multi disciplinary rounding meeting. I have spent 36 minutes in the care of this patient today. This includes time [id number], review and ordering of diagnostic imaging and laboratory studies.
--- NOTE | 2025-04-24 19:18 | XRAY Report ---
PROCEDURE: [place] OR C-Arm Procedure INDICATIONS: Left Hip Intertrochanteric Hip Fracture TECHNIQUE: Intraoperative fluoroscopic guidance was provided and low-resolution fluoroscopic spot films were obtained. COMPARISON: None. FINDINGS: Low-resolution intraoperative spot films show femoral nail and femoral neck screw in good position transfixing an intratrochanteric fracture IMPRESSION: Fluoroscopic guidance. Reviewed by: Arsh Morton MD on 04/24/2025 6:15 PM SPEEDY Approved by: Arsh Morton MD on 04/24/2025 6:15 PM AKMATT Station ID: [id number]
[2025-04-25 05:56] LABS: HCT - HEMATOCRIT 29.4 % (37.0-47.0); HGB - HEMOGLOBIN 9.6 g/dL (12.0-16.0); MEAN PLATELET VOLUME 11.2 fL (7.9-10.8); NRBC ABSOLUTE COUNT (AUTO) 0.00 x10^3/uL; NUCLEATED RED BLOOD CELLS AUTO 0.0 /100WBC; PLT - PLATELET COUNT 193 10^3/uL (130-450); RED CELL DISTRIBUTION WIDTH 14.5 % (12.0-15.0)
[2025-04-25 06:12] LABS: BUN - BLOOD UREA NITROGEN 15.0 mg/dL (6-20); CARBON DIOXIDE - CO2 25.0 mmol/L (21-32); CREATININE 0.7 mg/dL (0.6-1.3); GFR - MDRD 79.0 (>89)
--- NOTE | 2025-04-25 14:37 | PROVIDER PROGRESS NOTE ---
Subjective Prog Note Date Prog Note Date: 04/25/25 Subjective Subjective: She is doing well. she wants to be able to move her leg. she is worried about being wheelchair bound. I have assured her that this will not happen. Current Medications Current Medications Current Medications: Current Medications Generic Name Dose Route Start Last Admin Trade Name Joeq PRN Reason Stop Dose Admin Acetaminophen 1,000 mg 04/19/25 15:49 04/25/25 14:12 Acetaminophen 500 Mg Tablet PO 1,000 mg TID BEN Administration Acetaminophen 650 mg 04/22/25 13:26 Acetaminophen 325 Mg Tablet PO Q4HR PRN Pain 1 to 4, or Fever Apixaban 5 mg 04/23/25 21:00 04/25/25 08:55 Apixaban 5 Mg Tablet PO 5 mg BID BEN Administration Calcium Carbonate/Glycine 500 mg 04/22/25 21:00 04/25/25 08:56 Calcium Carbonate Chew 500 Mg Tablet PO 500 mg BID BEN Administration Ceftriaxone Sodium 1 gm 04/24/25 11:00 04/25/25 08:55 Ceftriaxone 1 Gm Vial IVP 1 gm DAILY BEN Administration Cholecalciferol 400 unit 04/23/25 09:00 04/25/25 08:56 Cholecalciferol 400 Unit Tablet PO 400 unit DAILY BEN Administration Furosemide 20 mg 04/20/25 09:00 04/25/25 08:56 Furosemide 20 Mg Tablet PO 20 mg DAILY BEN Administration Hydromorphone HCl 0.5 mg 04/19/25 15:49 04/24/25 04:54 Hydromorphone 0.5 Mg/0.5 Ml Syringe IVP 0.5 mg Q2H PRN Administration Pain 8 to 10 Insulin Human Lispro 1 - 5 unit 04/19/25 17:00 04/25/25 11:34 Insulin Lispro 300 Unit/3 Ml Pen SUBQ 1 unit 0800,1200,1700,2100 BEN Administration Protocol Levothyroxine Sodium 50 mcg 04/20/25 15:00 04/25/25 06:59 Levothyroxine 25 Mcg Tablet PO 50 mcg 0700 BEN Administration Metformin HCl 1,000 mg 04/23/25 12:00 04/25/25 08:55 Metformin 500 Mg Tablet PO 1,000 mg DAILYWM BEN Administration Metoprolol Tartrate 12.5 mg 04/23/25 21:00 04/25/25 08:58 Metoprolol Tartrate 25 Mg Tablet PO 12.5 mg BID BEN Administration Nystatin 1 applic 04/19/25 21:00 04/25/25 08:55 Nystatin Powder 15 Gm TOP 1 applic BID BEN Administration Ondansetron HCl 4 mg 04/19/25 15:49 04/21/25 12:52 Ondansetron Odt 4 Mg Tablet TL 4 mg Q6HR PRN Administration Nausea / Vomiting Ondansetron HCl 4 mg 04/19/25 15:49 Ondansetron 4 Mg/2 Ml Vial IVP Q6HR PRN Nausea / Vomiting Oxycodone HCl 5 mg 04/19/25 15:49 04/25/25 09:07 Oxycodone 5 Mg Tablet PO 5 mg Q4HR PRN Administration Pain 5 to 7 Sertraline HCl 50 mg 04/21/25 09:00 04/25/25 08:56 Sertraline 50 Mg Tablet PO 50 mg DAILY BEN Administration Sodium Chloride 10 ml 04/19/25 15:49 Sodium Chloride Flush 0.9% 10 Ml Syringe IVP PRN PRN NEEDED PER PROVIDER ORDERS Sodium Chloride 10 ml 04/19/25 17:00 04/25/25 01:51 Sodium Chloride Flush 0.9% 10 Ml Syringe IVP 10 ml 0100,0900,1700 BEN Administration Sodium Chloride 10 ml 04/22/25 13:26 Sodium Chloride Flush 0.9% 10 Ml Syringe IVP PRN PRN NEEDED PER PROVIDER ORDERS Sodium Chloride 10 ml 04/22/25 17:00 04/25/25 09:00 Sodium Chloride Flush 0.9% 10 Ml Syringe IVP 10 ml 0100,0900,1700 BEN Administration Sterile Water 10 ml 04/24/25 11:00 04/25/25 09:00 Water For Injection,Sterile 10 Ml Vial MC 10 ml DAILY BEN Administration Objective Vital Signs/Intake & Output Reviewed Vital Signs: Yes Vital Signs: Vital Signs x48h Temp Pulse Pulse Resp BP BP Pulse Ox 04/25/25 08:58 91 123/91 H 04/25/25 07:41 36.6 C 91 24 123/65 93 Intake & Output: Intake & Output 04/22/25 04/23/25 04/24/25 04/25/25 23:59 23:59 23:59 23:59 Intake Total 1775 / 1775 2300 / 2300 905 / 905 390 / 390 Output Total 1335 / 1335 1255 / 1255 2500 / 2500 1200 / 1200 Balance 440 / 440 1045 / 1045 -1595 / -1595 -810 / -810 Objective General Appearance: positive No acute distress and Alert Eyes Bilateral: positive Normal inspection ENT: positive ENT inspection nml Neck: positive Nml inspection Respiratory: positive No respiratory distress and Breath sounds nml Cardiovascular: positive Regular rate & rhythm Abdomen: positive Non-tender and No distention Skin: positive Color nml and Other (mild venous stasis skin changes BLE) Extremities: positive Non-tender, No pedal edema and Other (left lower ext dressing with small amount of serous exudate) Neurologic/Psychiatric: positive Oriented x3 Lab Results 04/25/25 05:15 04/25/25 05:15 Other Labs: Lab Results x24hrs 04/25/25 04/25/25 04/25/25 Range/Units 11:25 07:31 05:15 WBC 5.0 (4.8-10.8) x10^3/uL RBC 3.49 L (4.20-5.40) 10^6/uL Hgb 9.6 L (12.0-16.0) g/dL Hct 29.4 L (37.0-47.0) % MCV 84.2 (81.0-99.0) fL MCH 27.5 (27.0-31.0) pg MCHC 32.7 (32.0-36.0) g/dL RDW 14.5 (12.0-15.0) % Plt Count 193 (130-450) 10^3/uL MPV 11.2 H (7.9-10.8) fL Neut # (Auto) 3.6 (1.5-6.6) 10^3/uL Lymph # (Auto) 0.8 L (1.5-3.5) 10^3/uL [place] # (Auto) 0.5 (0.0-1.0) 10^3/uL Eos # (Auto) 0.1 (0.0-0.7) 10^3/uL Baso # (Auto) 0.0 (0.0-0.1) 10^3/uL Absolute Nucleated RBC 0.00 x10^3/uL Nucleated RBC % 0.0 /100WBC Sodium 136 (135-145) mmol/L Potassium 3.5 (3.5-4.5) mmol/L Chloride 105 (101-111) mmol/L Carbon Dioxide 25 (21-32) mmol/L Anion Gap 6.0 (6-13) BUN 15 (6-20) mg/dL Creatinine 0.7 (0.6-1.3) mg/dL Estimated GFR (MDRD) 79 L (>89) Glucose 149 H (74-104) mg/dL POC Whole Bld Glucose 150 155 (70-100) mg/dL Calcium 8.2 L (8.5-10.3) mg/dL 04/24/25 04/24/25 Range/Units 20:29 16:28 WBC (4.8-10.8) x10^3/uL RBC (4.20-5.40) 10^6/uL Hgb (12.0-16.0) g/dL Hct (37.0-47.0) % MCV (81.0-99.0) fL MCH (27.0-31.0) pg MCHC (32.0-36.0) g/dL RDW (12.0-15.0) % Plt Count (130-450) 10^3/uL MPV (7.9-10.8) fL Neut # (Auto) (1.5-6.6) 10^3/uL Lymph # (Auto) (1.5-3.5) 10^3/uL [place] # (Auto) (0.0-1.0) 10^3/uL Eos # (Auto) (0.0-0.7) 10^3/uL Baso # (Auto) (0.0-0.1) 10^3/uL Absolute Nucleated RBC x10^3/uL Nucleated RBC % /100WBC Sodium (135-145) mmol/L Potassium (3.5-4.5) mmol/L Chloride (101-111) mmol/L Carbon Dioxide (21-32) mmol/L Anion Gap (6-13) BUN (6-20) mg/dL Creatinine (0.6-1.3) mg/dL Estimated GFR (MDRD) (>89) Glucose (74-104) mg/dL POC Whole Bld Glucose 171 153 (70-100) mg/dL Calcium (8.5-10.3) mg/dL Assessment/Plan Problem List (1) Closed intertrochanteric fracture of left femur: Impression: She is POD #3 Yakov to left femur for intertrochanteric fracture. EBL 250cc. Some serous exudate on the dressing. no active bleeding at the wound She has been seen by PT and SNF is recommended. She has been accepted at [facility] and we are awaiting insurance auth. today is an avoidable day. I have added Calcium and Vit D post op for fracture healing. Vazquez is out and she is voiding. Qualifiers: Encounter type: initial encounter Fracture alignment: displaced Q ualified Code(s): S72.142A - Displaced intertrochanteric fracture of left femur, initial encounter for closed fracture (2) Urinary tract infection: Impression: She has been started on Rocephin 1 g daily. Urine culture is pending at this time shows greater than 100,000 colony forming units of gram-negative bacteria. This is a polymicrobial infection. Kelbsiella and Enterobacter. She is day #2 rocephin. on discharge I will have her complete 5 days, likely on a fluroquinolone. (3) Atrial fibrillation: Impression: Preliminary med rec does not show any rate control drugs Eliquis has been restarted. Rate currently controlled without medication- I have restarted home meds. She is tachycardic consistently, and normotensive to mildly hypertensive. I think she would benefit from a beta james. Metoprolol tartrate 12.5mg started 04/23. . Her tachycardia has resolved with beta-james treatment. She is normotensive. 2 Qualifiers: Atrial fibrillation type: unspecified Qualified Code(s): I48.91 - Unspecified atrial fibrillation (4) Delirium: Impression: Some hospital delirium which is imprving. Could have been due to UTI which has been treated (5) DM type 2 (diabetes mellitus, type 2): Impression: A1C is 7.9%. She has taken insulin only about 3 times over the summer. She is careful with her diet. She is complaint with metformin. She is on SSI right now. I will keep her blood sugars less than 180 while hospitalized. I will discharge her to resume metformin, and recomend lower carb diet, and peggy A1C in 3 month. I will not continue insulin on dc. With holding her metformin, she has been >180 at times. Metformin stated 04/23, as she was medically clear for SNF. 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 Echo shows mild LVH, LVEF estimate is 55-60%. Mild increase in the PA SP, there is right atrial dilation. Lasix has been continued. This patient's diagnosis and treatment plan was discussed this AM with attending physician as a part of multi disciplinary rounding meeting. I have spent 38 minutes in the care of this patient today. This includes time [id number], review and ordering of diagnostic imaging and laboratory studies.
[2025-04-26 06:23] LABS: HCT - HEMATOCRIT 31.1 % (37.0-47.0); HGB - HEMOGLOBIN 10.0 g/dL (12.0-16.0); MEAN PLATELET VOLUME 10.6 fL (7.9-10.8); NRBC ABSOLUTE COUNT (AUTO) 0.00 x10^3/uL; NUCLEATED RED BLOOD CELLS AUTO 0.0 /100WBC; PLT - PLATELET COUNT 214 10^3/uL (130-450); RED CELL DISTRIBUTION WIDTH 14.6 % (12.0-15.0)
[2025-04-26 06:41] LABS: BUN - BLOOD UREA NITROGEN 15.0 mg/dL (6-20); CARBON DIOXIDE - CO2 27.0 mmol/L (21-32); CREATININE 0.7 mg/dL (0.6-1.3); GFR - MDRD 79.0 (>89)
[2025-04-26] MEDS: CIPROFLOXACIN 250 MG TABLET PO SCH (12:39)
--- NOTE | 2025-04-26 15:21 | PROVIDER PROGRESS NOTE ---
Subjective Prog Note Date Prog Note Date: 04/26/25 Subjective Subjective: very excited to get to SNF tomorrow. Current Medications Current Medications Current Medications: Current Medications Generic Name Dose Route Start Last Admin Trade Name Fresheila PRN Reason Stop Dose Admin Acetaminophen 1,000 mg 04/19/25 15:49 04/26/25 13:50 Acetaminophen 500 Mg Tablet PO 1,000 mg TID BEN Administration Acetaminophen 650 mg 04/22/25 13:26 Acetaminophen 325 Mg Tablet PO Q4HR PRN Pain 1 to 4, or Fever Apixaban 5 mg 04/23/25 21:00 04/26/25 08:22 Apixaban 5 Mg Tablet PO 5 mg BID BEN Administration Calcium Carbonate/Glycine 500 mg 04/22/25 21:00 04/26/25 08:22 Calcium Carbonate Chew 500 Mg Tablet PO 500 mg BID BEN Administration Cholecalciferol 400 unit 04/23/25 09:00 04/26/25 08:22 Cholecalciferol 400 Unit Tablet PO 400 unit DAILY BEN Administration Ciprofloxacin 500 mg 04/26/25 12:00 04/26/25 12:39 Ciprofloxacin 250 Mg Tablet PO 500 mg BID BEN Administration Furosemide 20 mg 04/20/25 09:00 04/26/25 08:22 Furosemide 20 Mg Tablet PO 20 mg DAILY BEN Administration Hydromorphone HCl 0.5 mg 04/19/25 15:49 04/25/25 16:47 Hydromorphone 0.5 Mg/0.5 Ml Syringe IVP 0.5 mg Q2H PRN Administration Pain 8 to 10 Insulin Human Lispro 1 - 5 unit 04/19/25 17:00 04/26/25 11:30 Insulin Lispro 300 Unit/3 Ml Pen SUBQ 1 unit 0800,1200,1700,2100 BEN Administration Protocol Levothyroxine Sodium 50 mcg 04/20/25 15:00 04/26/25 06:56 Levothyroxine 25 Mcg Tablet PO 50 mcg 0700 BEN Administration Metformin HCl 1,000 mg 04/23/25 12:00 04/26/25 08:24 Metformin 500 Mg Tablet PO 1,000 mg DAILYWM BEN Administration Metoprolol Tartrate 12.5 mg 04/23/25 21:00 04/26/25 08:29 Metoprolol Tartrate 25 Mg Tablet PO Not Given BID BEN Nystatin 1 applic 04/19/25 21:00 04/26/25 08:27 Nystatin Powder 15 Gm TOP 1 applic BID BEN Administration Ondansetron HCl 4 mg 04/19/25 15:49 04/21/25 12:52 Ondansetron Odt 4 Mg Tablet TL 4 mg Q6HR PRN Administration Nausea / Vomiting Ondansetron HCl 4 mg 04/19/25 15:49 Ondansetron 4 Mg/2 Ml Vial IVP Q6HR PRN Nausea / Vomiting Oxycodone HCl 5 mg 04/19/25 15:49 04/26/25 08:22 Oxycodone 5 Mg Tablet PO 5 mg Q4HR PRN Administration Pain 5 to 7 Sertraline HCl 50 mg 04/21/25 09:00 04/26/25 08:22 Sertraline 50 Mg Tablet PO 50 mg DAILY BEN Administration Sodium Chloride 10 ml 04/19/25 15:49 Sodium Chloride Flush 0.9% 10 Ml Syringe IVP PRN PRN NEEDED PER PROVIDER ORDERS Sodium Chloride 10 ml 04/19/25 17:00 04/26/25 08:23 Sodium Chloride Flush 0.9% 10 Ml Syringe IVP 10 ml 0100,0900,1700 BEN Administration Sodium Chloride 10 ml 04/22/25 13:26 Sodium Chloride Flush 0.9% 10 Ml Syringe IVP PRN PRN NEEDED PER PROVIDER ORDERS Sodium Chloride 10 ml 04/22/25 17:00 04/26/25 08:23 Sodium Chloride Flush 0.9% 10 Ml Syringe IVP Not Given 0100,0900,1700 BEN Sterile Water 10 ml 04/24/25 11:00 04/26/25 08:23 Water For Injection,Sterile 10 Ml Vial MC 10 ml DAILY BEN Administration Objective Vital Signs/Intake & Output Reviewed Vital Signs: Yes Vital Signs: Vital Signs x48h Temp Pulse Pulse Resp BP BP Pulse Ox 04/26/25 10:30 36.5 C 84 16 125/65 96 04/26/25 08:29 97 97/58 L Intake & Output: Intake & Output 04/23/25 04/24/25 04/25/25 04/26/25 23:59 23:59 23:59 23:59 Intake Total 2300 / 2300 905 / 905 1768 / 1768 340 / 340 Output Total 1255 / 1255 2500 / 2500 1850 / 1850 1725 / 1725 Balance 1045 / 1045 -1595 / -1595 -82 / -82 -1385 / -1385 Objective General Appearance: positive No acute distress and Alert Eyes Bilateral: positive Normal inspection ENT: positive ENT inspection nml Neck: positive Nml inspection Respiratory: positive No respiratory distress and Breath sounds nml Cardiovascular: positive Regular rate & rhythm Abdomen: positive Non-tender and No distention Skin: positive Color nml and Other (mild venous stasis skin changes BLE) Extremities: positive Non-tender, No pedal edema and Other (left lower ext dressing with small amount of serous exudate) Neurologic/Psychiatric: positive Oriented x3 Lab Results 04/26/25 06:16 04/26/25 06:16 Other Labs: Lab Results x24hrs 04/26/25 04/26/25 04/26/25 Range/Units 11:13 07:48 06:16 WBC 4.8 (4.8-10.8) x10^3/uL RBC 3.62 L (4.20-5.40) 10^6/uL Hgb 10.0 L (12.0-16.0) g/dL Hct 31.1 L (37.0-47.0) % MCV 85.9 (81.0-99.0) fL MCH 27.6 (27.0-31.0) pg MCHC 32.2 (32.0-36.0) g/dL RDW 14.6 (12.0-15.0) % Plt Count 214 (130-450) 10^3/uL MPV 10.6 (7.9-10.8) fL Neut # (Auto) 3.3 (1.5-6.6) 10^3/uL Lymph # (Auto) 0.9 L (1.5-3.5) 10^3/uL [place] # (Auto) 0.5 (0.0-1.0) 10^3/uL Eos # (Auto) 0.1 (0.0-0.7) 10^3/uL Baso # (Auto) 0.0 (0.0-0.1) 10^3/uL Absolute Nucleated RBC 0.00 x10^3/uL Nucleated RBC % 0.0 /100WBC Sodium 138 (135-145) mmol/L Potassium 3.6 (3.5-4.5) mmol/L Chloride 104 (101-111) mmol/L Carbon Dioxide 27 (21-32) mmol/L Anion Gap 7.0 (6-13) BUN 15 (6-20) mg/dL Creatinine 0.7 (0.6-1.3) mg/dL Estimated GFR (MDRD) 79 L (>89) Glucose 153 H (74-104) mg/dL POC Whole Bld Glucose 178 161 (70-100) mg/dL Calcium 8.3 L (8.5-10.3) mg/dL 04/25/25 04/25/25 Range/Units 20:52 17:06 WBC (4.8-10.8) x10^3/uL RBC (4.20-5.40) 10^6/uL Hgb (12.0-16.0) g/dL Hct (37.0-47.0) % MCV (81.0-99.0) fL MCH (27.0-31.0) pg MCHC (32.0-36.0) g/dL RDW (12.0-15.0) % Plt Count (130-450) 10^3/uL MPV (7.9-10.8) fL Neut # (Auto) (1.5-6.6) 10^3/uL Lymph # (Auto) (1.5-3.5) 10^3/uL [place] # (Auto) (0.0-1.0) 10^3/uL Eos # (Auto) (0.0-0.7) 10^3/uL Baso # (Auto) (0.0-0.1) 10^3/uL Absolute Nucleated RBC x10^3/uL Nucleated RBC % /100WBC Sodium (135-145) mmol/L Potassium (3.5-4.5) mmol/L Chloride (101-111) mmol/L Carbon Dioxide (21-32) mmol/L Anion Gap (6-13) BUN (6-20) mg/dL Creatinine (0.6-1.3) mg/dL Estimated GFR (MDRD) (>89) Glucose (74-104) mg/dL POC Whole Bld Glucose 182 160 (70-100) mg/dL Calcium (8.5-10.3) mg/dL Assessment/Plan Problem List (1) Closed intertrochanteric fracture of left femur: Impression: She is POD #4 Yakov to left femur for intertrochanteric fracture. EBL 250cc. Some serous exudate on the dressing. no active bleeding at the wound She has been seen by PT and SNF is recommended. She has been accepted at [facility] and we are awaiting insurance auth. today is an avoidable day. I have added Calcium and Vit D post op for fracture healing. Vazquez is out and she is voiding. Qualifiers: Encounter type: initial encounter Fracture alignment: displaced Q ualified Code(s): S72.142A - Displaced intertrochanteric fracture of left femur, initial encounter for closed fracture (2) Urinary tract infection: Impression: She has been started on Rocephin 1 g daily. Urine culture is pending at this time shows greater than 100,000 colony forming units of gram-negative bacteria. This is a polymicrobial infection. Kelbsiella and Enterobacter. She is day #3 rocephin. on discharge I will have her complete 5 days, likely on a fluroquinolone. (3) Atrial fibrillation: Impression: Preliminary med rec does not show any rate control drugs Eliquis has been restarted. Rate currently controlled without medication- I have restarted home meds. She is tachycardic consistently, and normotensive to mildly hypertensive. I think she would benefit from a beta james. Metoprolol tartrate 12.5mg started 04/23. . Her tachycardia has resolved with beta-james treatment. She is normotensive, had one low reading this AM. 2 Qualifiers: Atrial fibrillation type: unspecified Qualified Code(s): I48.91 - Unspecified atrial fibrillation (4) Delirium: Impression: Some hospital delirium which is imprving. Could have been due to UTI which has been treated (5) DM type 2 (diabetes mellitus, type 2): Impression: A1C is 7.9%. She has taken insulin only about 3 times over the summer. She is careful with her diet. She is complaint with metformin. She is on SSI right now. I will keep her blood sugars less than 180 while hospitalized. I will discharge her to resume metformin, and recomend lower carb diet, and peggy A1C in 3 month. I will not continue insulin on dc. With holding her metformin, she has been >180 at times. Metformin stated 04/23, as she was medically clear for SNF. 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 Echo shows mild LVH, LVEF estimate is 55-60%. Mild increase in the PA SP, there is right atrial dilation. Lasix has been continued. This patient's diagnosis and treatment plan was discussed this AM with attending physician as a part of multi disciplinary rounding meeting. I have spent 36 minutes in the care of this patient today. This includes time [id number], review and ordering of diagnostic imaging and laboratory studies.
--- NOTE | 2025-04-26 16:50 | XRAY Report ---
EXAM: XR Ankle 1-2V LT DATE: 04/26/2025 2:16 PM PDT INDICATION: 89 years Female with pain TECHNIQUE: 2 views of the left ankle LIMITATION: None. COMPARISON: None available. FINDINGS: Alignment: anatomic Osseous structures: No significant focal lesions seen. Mineralization: Moderate diffuse osteopenia Joint spaces: Mild degenerative disease in the midfoot Soft tissues: Small plantar and superior calcaneal spurs IMPRESSION: Mild degenerative changes, no acute focal osseous lesion in this osteopenic patient Reviewed by: Timur Hale MD on 04/26/2025 4:47 PM PDT Approved by: Timur Hale MD on 04/26/2025 4:47 PM PDT Station ID: [id number]
--- NOTE | 2025-04-27 00:33 | Discharge Summary ---
"Discharge Summary Admit Date: 04/19/25 Discharge Date: 04/27/25 Discharging Provider: Raad Monroe Primary Care Provider: does not have a local PCP Code Status: Do Not Attempt Resuscitation DIAGNOSES Discharge Diagnoses with Status of Each Condition: Left intertrochanteric hip fracture status post operative treatment Urinary tract infection, Klebsiella and Enterobacter, treated. Atrial fibrillation, chronic and stable Delirium, resolved Type 2 diabetes, A1c 7.9%, on metformin Peripheral edema, stable on Lasix. Hypothyroidism, chronic HPI History of Present Illness: 89-year-old female with PMH type 2 diabetes that she takes metformin for but is noncompliant with her insulin. Other history A-fib on Pradaxa. She recently sold her home, and is spending a few months at a time with various members of her family. Currently staying with her grandson. She had a mechanical fall while gardening today and fell directly onto her left hip. Denies hitting her head. She reports severe left hip pain. In the ER, x-ray of the hip showed a comminuted, displaced intertrochanteric fracture of the left hip. Ortho was consulted by ER provider, who recommended admission to medicine. Hospitalist was contacted for admission CONSULTS | PROCEDURES Procedures: X-ray chest x-ray: Question subtle interstitial pulmonary edema X-ray: Comminuted displaced intertrochanteric left hip fracture Left ankle x-ray: Degenerative changes, negative for acute fracture Echocardiogram: Mild LVH with normal LV function EF suggested to be 55 to 60%. RV mild to moderate dilation RV with normal systolic function. Mild to moderate tricuspid regurg. Pulmonary artery systolic pressure 47 mmHg HOSPITAL COURSE Hospital Course: Patient was admitted to the hospital and underwent left hip nailing on 04/22. She was started on Rocephin while in the inpatient setting and is discharged on ciprofloxacin for her UTI. She has been transition to Eliquis and started on metoprolol tartrate 12.5 mg twice daily with good effect. She has been discharged to SNF to follow-up with PCP and with orthopedics ALLERGIES Allergies Allergy/AdvReac Type Severity Reaction Status Date / Time Sulfa (Sulfonamide Allergy Intermediate Rash Verified 04/19/25 14:17 Antibiotics) MEDICATIONS Ambulatory Orders Medication Instructions Recorded Confirmed atorvastatin 20 mg tablet 20 mg PO DAILY 04/20/2504/04 acetaminophen 500 mg capsule 1,000 mg (2 x 500 mg) PO TID 7 04/27/25 days #42 caps apixaban 5 mg tablet (Eliquis) 5 mg PO BID #60 tabs calcium carbonate 500 mg PO BID #60 tabs 04/27 cholecalciferol (vitamin D3) 10 10 mcg PO DAILY #30 ta bs 04/27/25 mcg (400 unit) tablet ciprofloxacin HCl 500 mg tablet 500 mg PO BID 2 days # 4 tabs 04/27/25 (Cipro) furosemide 20 mg tablet (Lasix) 20 mg PO DAILY #30 tab s 04/27/25 levothyroxine 50 mcg tablet 50 mcg PO QAM #30 tabs 04/20/25 metformin 500 mg tablet,extended 1,000 mg (2 x 500 mg) PO DAILY #30 04/27/25 04/20/25 release 24 hr tabs metoprolol tartrate 25 mg tablet 12.5 mg (1/2 x 25 mg) PO BID #60 04/27/25 tabs oxycodone 5 mg tablet 5 mg PO Q4H PRN pain #20 tab s 04/27/25 sertraline 50 mg tablet 50 mg PO DAILY #30 tabs 04/0504/20/25 PHYSICAL EXAM AT DISCHARGE Vital Signs: Vital Signs x48h Temp Pulse Resp BP Pulse Ox 04/27/25 11:00 36.6 C 86 18 143/76 H 95 Physical Exam Other/Comments: General Appearance: positive No acute distress and Alert Eyes Bilateral: positive Normal inspection ENT: positive ENT inspection nml Neck: positive Nml inspection Respiratory: positive No respiratory distress and Breath sounds nml Cardiovascular: positive Regular rate & rhythm Abdomen: positive Non-tender and No distention Skin: positive Color nml and Other (mild venous stasis skin changes BLE) Extremities: positive Non-tender, No pedal edema and Other (left lower ext dressing with small amount of serous exudate) Neurologic/Psychiatric: positive Oriented x3 LABS 04/27/25 06:10 04/27/25 06:10 QUALITY (Female Hip Fx Only) Was patient sent home on osteoporosis medication?: Yes FOLLOW UP Follow Up: Dr. Herrera in clinic 2 weeks This patient needs local PCP post SNF discharge TIME SPENT Time Spent in Discharge (Minutes): 45 Discharge Plan Discharge Patient Disposition: DC/Xfer Condition: Stable Prescriptions: New acetaminophen 500 mg capsule 1,000 mg PO TID 7 Days Qty: 42 0RF calcium carbonate 500 mg calcium (1,250 mg) tablet 500 mg PO BID Qty: 60 0RF cholecalciferol (vitamin D3) 10 mcg (400 unit) tablet 10 mcg PO DAILY Qty: 30 0RF ciprofloxacin HCl [Cipro] 500 mg tablet 500 mg PO BID 2 Days Qty: 4 0RF Eliquis 5 mg tablet 5 mg PO BID Qty: 60 2RF furosemide [Lasix] 20 mg tablet 20 mg PO DAILY Qty: 30 2RF metoprolol tartrate 25 mg tablet 12.5 mg PO BID Qty: 60 2RF oxycodone 5 mg tablet 5 mg PO Q4H PRN (Reason: pain) Qty: 20 0RF Continued atorvastatin 20 mg tablet 20 mg PO DAILY Patient Comments: TAKE ONE TABLET BY MOUTH ONCE DAILY. levothyroxine 50 mcg tablet 50 mcg PO QAM Qty: 30 0RF Patient Comments: 1 TAB DAILY FOR LOW THYROID metformin 500 mg tablet extended release 24 hr 1,000 mg PO DAILY Qty: 30 0RF sertraline 50 mg tablet 50 mg PO DAILY Qty: 30 0RF Discontinued dabigatran etexilate [Pradaxa] 110 mg capsule 110 mg PO BID Novolin N NPH U-100 Insulin 100 unit/mL suspension 30 unit SUBCUT DAILY Patient Comments: PT WAS FUZZY ON ANSWERS TO HER MEDICATIONS, DAUGHTER SENT A TEXT WITH AN UPDATED LIST. CALLED JANAK CARROL FOR CLARIFICATION ON PRADAXA AND METFORMIN tramadol 50 mg tablet 50 mg PO Q6H Activity Restrictions: Wt Bearing as Tolerated Health Concerns: You came to the hospital because you had a fracture in your left femur. This was repaired operatively with a kirit in your left femur. I would like for you to continue calcium and vitamin D supplementation to help with fracture healing. Please work with physical therapy to regain as much strength as possible. You are found to have a UTI, so I am discharging you with some ciprofloxacin for you to take. I would like for you to take metoprolol and Eliquis for your atrial fibrillation. Please follow-up with your primary care provider Print Language: Belarusian Patient Instructions: Surg Dc Stand Alone Forms: SNF Discharge Follow-up Care: Anders Velez [Other] Report called to and time (if no answer, doc. time of each call attempted): Tonja Buckner at [email or web address] at [facility]. Vitals documented within 30 minutes of discharge?: Yes (yes)"
[2025-04-27 06:37] LABS: HCT - HEMATOCRIT 30.8 % (37.0-47.0); HGB - HEMOGLOBIN 10.0 g/dL (12.0-16.0); MEAN PLATELET VOLUME 10.0 fL (7.9-10.8); NRBC ABSOLUTE COUNT (AUTO) 0.00 x10^3/uL; NUCLEATED RED BLOOD CELLS AUTO 0.0 /100WBC; PLT - PLATELET COUNT 254 10^3/uL (130-450); RED CELL DISTRIBUTION WIDTH 14.4 % (12.0-15.0)
[2025-04-27 07:01] LABS: BUN - BLOOD UREA NITROGEN 15.0 mg/dL (6-20); CARBON DIOXIDE - CO2 26.0 mmol/L (21-32); CREATININE 0.7 mg/dL (0.6-1.3); GFR - MDRD 79.0 (>89)
[2025-04-27 08:12] VITALS: TEMP 97.9
[2025-04-27] MEDS: ACETAMINOPHEN 325 MG TABLET PO PRN (11:21)
[2025-04-27 11:37] VITALS: BP 143/76; O2SAT 95
== END 2025-04-27 11:30 | DRG 481 ==
LOC: ED 14:10 → MS2 14:39
PROVIDERS: ADMIT Nurse Practitioner Acute Care; ATTEND Nurse Practitioner Acute Care
PROC: HIPNAIL (2025-04-22 08:00)
DX: E11.65 Type 2 diabetes mellitus with hyperglycemia; T38.3X6A Underdosing of insulin and oral hypoglycemic [antidiabetic] drugs, initial encounter; Z91.128 Patient's intentional underdosing of medication regimen for other reason; N39.0 Urinary tract infection, site not specified; Z79.4 Long term (current) use of insulin; Z79.84 Long term (current) use of oral hypoglycemic drugs; R00.0 Tachycardia, unspecified; W18.30XA Fall on same level, unspecified, initial encounter; Z79.01 Long term (current) use of anticoagulants; S72.142A Displaced intertrochanteric fracture of left femur, initial encounter for closed fracture; B96.89 Other specified bacterial agents as the cause of diseases classified elsewhere; I50.9 Heart failure, unspecified; I48.91 Unspecified atrial fibrillation; R60.0 Localized edema; Z66 Do not resuscitate; R41.0 Disorientation, unspecified; N18.9 Chronic kidney disease, unspecified; E03.9 Hypothyroidism, unspecified; E11.22 Type 2 diabetes mellitus with diabetic chronic kidney disease; B96.1 Klebsiella pneumoniae [K. pneumoniae] as the cause of diseases classified elsewhere; Y93.H2 Activity, gardening and landscaping